=== PATIENT | male | born 1960 | race Caucasian/White ===

== ENCOUNTER 2018-04-30 09:37 | Emergency (ER) | payer MEDICARE, OTHER ==
--- NOTE | 2018-04-30 10:36 | EDM.PDOC ---
ED HPI GENERAL MEDICAL PROBLEM - General Chief Complaint: Upper Extremity Injury/Pain Stated Complaint: LT ARM IS SWOLLEN AND BRUISED Time Seen by Provider: 04/30/18 10:35 Source of Information: Reports: Patient History Limitations: Reports: No Limitations - History of Present Illness INITIAL COMMENTS - FREE TEXT/NARRATIVE: Priyank complains of pain/ swelling of the left upper extremity. Was moving "building a pool house LAST . Swelling started shortly afterwards with no apparent trauma.Red,numb,swollen arm and forearm. 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 Musculoskeletal History: Reports: Fracture Other Musculoskeletal History: hx bilat wrist fx Neurological History: Reports: Seizure, Other (See Below) 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 Psychiatric History: Reports: Addiction, Mood Swings Endocrine/Metabolic History: Reports: None Hematologic History: Reports: None Immunologic History: Reports: None Oncologic (Cancer) History: Reports: None Dermatologic History: Reports: None - Infectious Disease History Infectious Disease History: Reports: Chicken Pox - Past Surgical History Respiratory Surgical History: Reports: None GI Surgical History: Reports: None Male Surgical History: Reports: None Neurological Surgical History: Reports: Other (See Below) Other Neurological Surgeries/Procedures: scar tissue removed from R side of brain Musculoskeletal Surgical History: Reports: Hip Replacement, ORIF, Other (See Below) Other Musculoskeletal Surgeries/Procedures:: bilat wrist surgery, hip replacement Social & Family History - Family History Family Medical History: Noncontributory - Tobacco Use Smoking Status *Q: Current Every Day Smoker Years of Tobacco use: 35 Packs/Tins Daily: 0.4 - Caffeine Use Caffeine Use: Reports: Coffee, Soda - Recreational Drug Use Recreational Drug Use: Yes Recreational Drug Type: Reports: Cocaine, LSD (Acid), Marijuana/Hashish, Methamphetamine, PCP ([place]) Other Recreational Drug Type: has not used since 1988 Review of Systems - Review of Systems Review Of Systems: ROS reveals no pertinent complaints other than HPI. ED EXAM, GENERAL - Physical Exam Exam: See Below Free Text/Narrative:: The left upper extremity has edema of the biceps and some ecchymosis.. Forearm also noted as read well and edematous. He has normal peripheral pulses abdomen radius. Exam Limited By: No Limitations General Appearance: Alert Course - Vital Signs Text/Narrative:: Ultrasound negative for DVT. Last Recorded V/S: Last Vital Signs Temp 97.8 F 04/30/18 09:42 Pulse 75 04/30/18 09:42 Resp 18 04/30/18 09:42 BP 160/74 H 04/30/18 09:42 Pulse Ox 98 04/30/18 09:42 - Orders/Labs/Meds Orders: Active Orders 24 hr Category Date Time Status VL Duplex Upr Ext Veins Ltd Lt [US] Stat Exams 04/30/18 11:17 Ordered Labs: Laboratory Tests 04/30/18 04/30/18 04/30/18 Range/Units 10:40 10:40 10:40 WBC 9.2 (4.5-12.0) X10-3/uL RBC 4.44 (4.30-5.75) x10(6)uL Hgb 13.9 (11.5-15.5) g/dL Hct 41.0 (30.0-51.3) % MCV 92.3 (80-96) fL MCH 31.2 (27.7-33.6) pg MCHC 33.8 (32.2-35.4) g/dL RDW 14.0 (11.5-15.5) % Plt Count 603 H (125-369) X10(3)uL MPV 9.0 (7.4-10.4) fL Neut % (Auto) 73.5 (46-82) % Lymph % (Auto) 15.0 (13-37) % Maury % (Auto) 5.1 (4-12) % Eos % (Auto) 3 (1.0-5.0) % Baso % (Auto) 3 H (0-2) % Neut # (Auto) 6.7 (1.6-8.3) # Lymph # (Auto) 1.4 (0.6-5.0) # Maury # (Auto) 0.5 (0.0-1.3) # Eos # (Auto) 0.3 (0.0-0.8) # Baso # (Auto) 0.3 H (0.0-0.2) # ESR 9 (0-15) mm/hr Sodium 141 (135-145) mmol/L Potassium 3.8 (3.5-5.3) mmol/L Chloride 106 (100-110) mmol/L Carbon Dioxide 28 (21-32) mmol/L BUN 11 (7-18) mg/dL Creatinine 0.8 (0.70-1.30) mg/dL Est Cr Clr Drug Dosing TNP Estimated GFR (MDRD) > 60 (>60) BUN/Creatinine Ratio 13.8 (9-20) Glucose 101 (80-116) mg/dL Calcium 8.5 L (8.6-10.2) mg/dL Creatine Kinase 91 (60-160) IU/L C-Reactive Protein 3.8 H* (0.5-0.9) mg/dL Departure - Departure Time of Disposition: 11:50 Disposition: Home, Self-Care 01 Clinical Impression: Cellulitis - Discharge Information Referrals: Rey Jacobson MD [Primary Care Provider] - Forms: ED Department Discharge - Problem List & Annotations (1) Cellulitis SNOMED Code(s): 050453589 Code(s): L03.90 - CELLULITIS, UNSPECIFIED Status: Acute Current Visit: Yes Qualifiers: Site of cellulitis: extremity Site of cellulitis of extremity: upper extremity Laterality: left Qualified Code(s): L03.114 - Cellulitis of left upper limb - Problem List Review Problem List Initiated/Reviewed/Updated: Yes - My Orders Last 24 Hours: My Active Orders 04/30/18 11:17 VL Duplex Upr Ext Veins Ltd Lt [US] Stat - Assessment/Plan Last 24 Hours: My Active Orders 04/30/18 11:17 VL Duplex Upr Ext Veins Ltd Lt [US] Stat Plan: I will discharge him home on cephalexin, abdominal pain. Advise elevation,use ibuprofen when necessary as well. Follow up in 1 week.
[2018-04-30] MEDS ORDERED: Cephalexin 500 MG Cap PO ONE (11:51)
[2018-04-30 13:01] VITALS: BP 158/82
--- NOTE | 2018-05-02 11:15 | US ---
INDICATION: Cellulitis. DUPLEX ULTRASOUND, LEFT UPPER EXTREMITY VEINS: Utilizing 2-D real time, duplex Doppler spectral analysis and color flow imaging, examination of the left upper extremity veins was obtained, 04/30/2018, and revealed compressible venous structures without evidence of deep venous thrombosis. Interstitial edema is noted. MTDD
== END 2018-04-30 11:56 | disposition home or self-care (01) ==
LOC: FB.ED 09:37
DX: L03.114 Cellulitis of left upper limb (principal); F17.210 Nicotine dependence, cigarettes, uncomplicated; Z88.5 Allergy status to narcotic agent
CPT/HCPCS: 36415; 80048; 82550; 85025; 85651; 86140; 93971-LT; 99284; A9270-GY

== ENCOUNTER 2018-10-20 09:47 | Emergency (ER) | payer MEDICARE, OTHER, BC ==
[2018-10-20] MEDS ORDERED: Ketamine 500 mg/10 ML MDV IV ONE (10:02)
[2018-10-20] MEDS ORDERED: Sodium Chloride 0.9% 1,000 ML IV ONE (10:03)
[2018-10-20] MEDS ORDERED: Indomethacin 25 MG Cap PO ONE (10:54)
[2018-10-20 13:32] VITALS: BP 176/82
--- NOTE | 2018-10-23 16:34 | EDM.PDOC ---
ED HPI GENERAL MEDICAL PROBLEM - General Chief Complaint: Lower Extremity Injury/Pain Stated Complaint: RT ANKLE PAIN AND SWOLLEN Time Seen by Provider: 10/20/18 10:30 Source of Information: Reports: Patient History Limitations: Reports: No Limitations - History of Present Illness INITIAL COMMENTS - FREE TEXT/NARRATIVE: This pleasant smoking 56-year-old asthenic. Presents with a history onset last night of right ankle pain. It occurred spontaneously. Is not lifting anything nor did he slip/fall on the ice. H di not have an inversion injury. No unusual heavy lifting or heavy exertion yesterday. No previous history of injury or compression fracture or jumping from heights. left ankle Pain Score (Numeric/FACES): 8 - Related Data Allergies Allergy/AdvReac Type Severity Reaction Status Date / Time codeine Allergy Severe Nausea and Verified 04/30/18 09:47 Vomiting Home Meds: Home Meds Felbamate [Felbatol] 1,800 mg PO BID 05/30/16 [History] Folic Acid 1 mg PO DAILY 05/30/16 [History] lamoTRIgine [Lamictal] 500 mg PO DAILY 05/30/16 [History] Indomethacin [Indocin] 25 mg PO BID PRN #30 cap 10/20/18 [Rx] Past Medical History HEENT History: Reports: None Cardiovascular History: Reports: None Respiratory History: Reports: None Gastrointestinal History: Reports: None Genitourinary History: Reports: None 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 Musculoskeletal History: Reports: Fracture Other Musculoskeletal History: hx bilat wrist fx Neurological History: Reports: Seizure, Other (See Below) 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 Psychiatric History: Reports: Addiction, Mood Swings Endocrine/Metabolic History: Reports: None Hematologic History: Reports: None Immunologic History: Reports: None Oncologic (Cancer) History: Reports: None Dermatologic History: Reports: None - Infectious Disease History Infectious Disease History: Reports: Chicken Pox - Past Surgical History Respiratory Surgical History: Reports: None GI Surgical History: Reports: None Male Surgical History: Reports: None Neurological Surgical History: Reports: Other (See Below) Other Neurological Surgeries/Procedures: scar tissue removed from R side of brain Musculoskeletal Surgical History: Reports: Hip Replacement, ORIF, Other (See Below) Other Musculoskeletal Surgeries/Procedures:: bilat wrist surgery, hip replacement Social & Family History - Family History Family Medical History: Noncontributory - Tobacco Use Smoking Status *Q: Former Smoker Years of Tobacco use: 17 Packs/Tins Daily: 0.5 Used Tobacco, but Quit: Yes Month/Year Tobacco Last Used: cannot remember Second Hand Smoke Exposure: No - Caffeine Use Caffeine Use: Reports: Coffee, Soda - Recreational Drug Use Recreational Drug Use: Yes Review of Systems - Review of Systems Review Of Systems: ROS reveals no pertinent complaints other than HPI. ED EXAM, GENERAL - Physical Exam Exam: See Below Free Text/Narrative:: Pleasant asthenic man who is a smoker. He has smoking odor on his breath. And is attended by his . Exam Limited By: No Limitations General Appearance: Alert Eye Exam: Bilateral Eye: Normal Inspection Ears: Normal External Exam, Hearing Loss Ear Exam: Bilateral Ear: Auricle Normal, Canal Normal, TM normal Nose: Normal Inspection, Normal Mucosa, No Blood Throat/Mouth: Normal Inspection Head: Atraumatic, Normocephalic Neck: Normal Inspection, Supple, Non-Tender, Full Range of Motion Respiratory/Chest: No Respiratory Distress, Lungs Clear, Normal Breath Sounds, No Accessory Muscle Use, Chest Non-Tender Cardiovascular: Normal Peripheral Pulses, Regular Rate, Rhythm, No Edema, No Gallop, No JVD, No Murmur, No Rub Peripheral Pulses: 1+: Radial (L), Radial (R), Dorsalis Pedis (L), Dorsalis Pedis (R) GI/Abdominal: Normal Bowel Sounds, Soft, Non-Tender, No Organomegaly, No Distention, No Abnormal Bruit, No Mass (Male) Exam: Deferred Rectal (Males) Exam: Deferred Back Exam: Normal Inspection Extremities: Other (Right ankle mild discomfort with inversion and eversion no pain with drawer sign. No swelling. No focal tenderness. No crepitance.) Neurological: Alert, Oriented, CN II-XII Intact, Normal Cognition, Normal Gait, Normal Reflexes, No Motor/Sensory Deficits Psychiatric: Normal Affect, Tearful Skin Exam: Warm, Dry, Intact, Normal Color Course - Vital Signs Last Recorded V/S: Last Vital Signs Temp 36.6 C 10/20/18 10:45 Pulse 55 L 10/20/18 11:15 Resp 17 10/20/18 11:15 BP 176/82 H 10/20/18 11:15 Pulse Ox 100 10/20/18 11:15 - Orders/Labs/Meds Labs: Laboratory Tests 10/20/18 Range/Units 11:10 Uric Acid 4.3 (2.6-6.0) mg/dL Meds: Medications Discontinued Medications Generic Name Dose Route Start Last Admin Trade Name Freq PRN Reason Stop Dose Admin Sodium Chloride 1,000 mls @ 999 mls/hr 10/20/18 10:03 10/20/18 16:24 Normal Saline IV 10/20/18 11:03 Not Given .BOLUS ONE Indomethacin 25 mg 10/20/18 10:54 10/20/18 16:23 Indocin PO 10/20/18 10:55 Not Given ONETIME ONE Ketamine HCl 40 mg 10/20/18 10:02 10/20/18 16:24 Ketalar IV 10/20/18 10:03 Not Given ONETIME ONE - Re-Assessments/Exams Free Text/Narrative Re-Assessment/Exam: 10/23/18 16:38 x-rays were performed of his right ankle no ankle x-ray abnormality. Departure - Departure Time of Disposition: 10:50 (Ankle pain. Etiology indeterminate. Most likely gout. I noted i would call to him the results of the uric acid. The meantime trial of Indocin 25 mg 1 tablet 3 times a day.; After the lab tests came back uric acid was normal. I was mistaken that this might be gout or pseudogout. This raises a question if is having ischemia and/or vascular abnormalitie mediated symptoms. Clinically, he did not appear to be any compromise of his vascular structures in the lower extremity.. Patient was Ok's to leave the ER before I could make this result known to him. Consequently he's been advised to ankle-brachial index testing. There is no clear evidence for ischemic vessel disease. He is a smoker. So it is possible that maybe her problem.) Disposition: Home, Self-Care 01 Clinical Impression: Acute ankle pain Qualifiers: Laterality: right Qualified Code(s): M25.571 - Pain in right ankle and joints of right foot - Discharge Information *PRESCRIPTION DRUG MONITORING PROGRAM REVIEWED*: Not Applicable *COPY OF PRESCRIPTION DRUG MONITORING REPORT IN PATIENT NANCY: Not Applicable Prescriptions: Indomethacin [Indocin] 25 mg PO BID PRN #30 cap PRN Reason: Pain Referrals: Rey Jacobson MD [Primary Care Provider] - Forms: ED Department Discharge, ED Summary Discharge Additional Instructions: You have gout until proven otherwise, otherwise possible circulation abn. Lab tests will not be back for a while. Consequently I discharged you early so that you will not have to wait another hour (because of the emergent lab work of another patient is delaying the biology laboratory assistant"s chance to get after blood test) Have been prescribed Indocin take 25 mg 3 times a day. I will call the results of the blood test once is completed within an hour or 2 Follow-up with her doctor in a week
== END 2018-10-20 11:17 | disposition home or self-care (01) ==
LOC: FB.ED 09:47
DX: M25.571 Pain in right ankle and joints of right foot (principal); Z88.5 Allergy status to narcotic agent; Z79.899 Other long term (current) drug therapy; Z87.891 Personal history of nicotine dependence
CPT/HCPCS: 36415; 73610-RT; 84550; 99284

== ENCOUNTER 2018-12-03 15:54 | Emergency (ER) | payer MEDICARE, OTHER ==
[2018-12-03] MEDS ORDERED: Sodium Chloride 0.9% 10 ML Syringe FLUSH PRN (16:29)
[2018-12-03] MEDS ORDERED: Dextrose 5%-Lactated Ringers 1,000 ML IV SCH (16:30)
--- NOTE | 2018-12-03 17:19 | EDM.PDOC ---
ED HPI GENERAL MEDICAL PROBLEM - General Chief Complaint: Gastrointestinal Problem Stated Complaint: HEADACHE Time Seen by Provider: 12/03/18 16:15 Source of Information: Reports: Patient, Family History Limitations: Reports: No Limitations - History of Present Illness INITIAL COMMENTS - FREE TEXT/NARRATIVE: Priyank comes into [facility] ED with sxs of GI upset, nausea and vomiting, and moderately severe headache. Illness began 2 days ago with digestive upset and diarrhea, no reported BRB or mucous. Sxs seem to improve, then began feeling ill again late yesterday evening, followed by multiple clear emesis about 2:30 am today. Headaches followed, frontal-occipital in nature, with some dizziness worse with lying back. He vomited breakfast this am, and was seen in Clinic about 11 am today, and administered Toradol and Zofran for sxs relief. Headache sxs persist and seem worse. No position seems comfortable, although sitting up seems to keep sxs stable. Treatments COMMAND AND CONTROL OFFICER: Reports: NSAIDS, Other (see below) Other Treatments COMMAND AND CONTROL OFFICER: Zofran - Related Data Allergies Allergy/AdvReac Type Severity Reaction Status Date / Time codeine Allergy Severe Nausea and Verified 04/30/18 09:47 Vomiting Home Meds: Home Meds Felbamate [Felbatol] 1,800 mg PO BID 05/30/16 [History] lamoTRIgine [Lamictal] 500 mg PO DAILY 05/30/16 [History] Aspirin 325 mg PO DAILY 12/03/18 [History] hydrOXYzine pamoate [Vistaril] 50 mg PO Q6H #20 cap 12/03/18 [Rx] traMADol [Ultram] 50 mg PO Q4H PRN #20 tab 12/03/18 [Rx] Past Medical History HEENT History: Reports: None Cardiovascular History: Reports: None Respiratory History: Reports: None Gastrointestinal History: Reports: None Genitourinary History: Reports: None SUPERINTENDENT RECREATION History: Reports: None Musculoskeletal History: Reports: Fracture Other Musculoskeletal History: hx bilat wrist fx Neurological History: Reports: Seizure, Other (See Below) 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 Psychiatric History: Reports: Addiction, Mood Swings Endocrine/Metabolic History: Reports: None Hematologic History: Reports: None Immunologic History: Reports: None Oncologic (Cancer) History: Reports: None Dermatologic History: Reports: None - Infectious Disease History Infectious Disease History: Reports: Chicken Pox - Past Surgical History Respiratory Surgical History: Reports: None GI Surgical History: Reports: None Male Surgical History: Reports: None Neurological Surgical History: Reports: Other (See Below) Other Neurological Surgeries/Procedures: scar tissue removed from R side of brain Musculoskeletal Surgical History: Reports: Hip Replacement, ORIF, Other (See Below) Other Musculoskeletal Surgeries/Procedures:: bilat wrist surgery, hip replacement Social & Family History - Family History Family Medical History: Noncontributory - Tobacco Use Smoking Status *Q: Current Every Day Smoker Years of Tobacco use: 30 Packs/Tins Daily: 0.5 - Caffeine Use Caffeine Use: Reports: Coffee - Recreational Drug Use Recreational Drug Use: No ED ROS GENERAL - Review of Systems Review Of Systems: See Below Constitutional: Reports: Malaise, Weakness, Decreased Appetite HEENT: Reports: No Symptoms Respiratory: Reports: No Symptoms Cardiovascular: Reports: No Symptoms Endocrine: Reports: No Symptoms GI/Abdominal: Reports: Diarrhea, Decreased Appetite, Nausea, Vomiting : Reports: No Symptoms Musculoskeletal: Reports: No Symptoms Skin: Reports: No Symptoms Neurological: Reports: Dizziness, Headache Psychiatric: Reports: No Symptoms Hematologic/Lymphatic: Reports: No Symptoms Immunologic: Reports: No Symptoms ED EXAM, GI/ABD - Physical Exam Exam: See Below Exam Limited By: No Limitations General Appearance: Alert, WD/WN, Anxious, Mild Distress Eyes: Bilateral: Normal Appearance, EOMI Ears: Normal External Exam Nose: Normal Inspection Throat/Mouth: Normal Lips, Normal Oropharynx, Normal Voice, No Airway Compromise Head: Atraumatic, Normocephalic Neck: Normal Inspection, Supple, Non-Tender Respiratory/Chest: No Respiratory Distress, Normal Breath Sounds, No Accessory Muscle Use, Chest Non-Tender, Decreased Breath Sounds Cardiovascular: Regular Rate, Rhythm, No Edema, No JVD, No Murmur GI/Abdominal Exam: Normal Bowel Sounds, Soft, Non-Tender, No Organomegaly, No Distention, No Mass (Male) Exam: Deferred Rectal (Males) Exam: Deferred Back Exam: Normal Inspection Extremities: Normal Inspection, Normal Range of Motion, Non-Tender, No Pedal Edema Neurological: Alert, Oriented, CN II-XII Intact, Normal Cognition, Normal Gait, No Motor/Sensory Deficits Psychiatric: Anxious Skin Exam: Warm, Dry, Intact, Normal Color Lymphatic: No Adenopathy Course - Vital Signs Text/Narrative:: Following assessment at the [facility] ED, I started an IV in the RUE and administered 1L D5LR over the next 2 hrs. He was also administered Vistaril 50 mg IM for nausea, and Tramadol 50 mg tab for headache sxs. A noncontrast Head CT was satisfactory; screening labs noted: Hgb 15.8 gm, WBC 15,900, plts 775,000 ; CMP baseline, UA neg, CRP 1.5. He was clinically improved at time of discharge. Last Recorded V/S: Last Vital Signs Temp 36.5 C 12/03/18 15:55 Pulse 72 12/03/18 15:55 Resp 18 12/03/18 15:55 BP 123/78 12/03/18 15:55 Pulse Ox 96 12/03/18 15:55 - Orders/Labs/Meds Orders: Active Orders 24 hr Category Date Time Status Head wo Cont [CT] Stat Exams 12/03/18 16:30 Taken Dextrose 5%-Lactated Ringers 1,000 ml Med 12/03/18 16:30 Active IV ASDIRECTED Sodium Chloride 0.9% [Saline Flush] Med 12/03/18 16:29 Active 10 ml FLUSH ASDIRECTED PRN Peripheral IV Insertion Adult [OM.PC] Routine Oth 12/03/18 16:29 Ordered Medication Orders Dextrose/Lactated Ringer's (Dextrose 5%-Lactated Ringers) 1,000 mls @ 500 mls/ hr IV ASDIRECTED ALEXIA Last Admin: 12/03/18 16:43 Dose: 500 mls/hr Sodium Chloride (Saline Flush) 10 ml FLUSH ASDIRECTED PRN PRN Reason: Keep Vein Open Last Admin: 12/03/18 16:44 Dose: 10 ml Labs: Laboratory Tests 12/03/18 12/03/18 12/03/18 Range/Units 16:45 16:45 16:45 WBC 15.9 H (4.5-12.0) X10-3/uL RBC 5.32 (4.30-5.75) x10(6)uL Hgb 15.8 (13.5-17.8) g/dL Hct 47.4 (30.0-51.3) % MCV 89.1 (80-96) fL MCH 29.8 (27.7-33.6) pg MCHC 33.4 (32.2-35.4) g/dL RDW 13.8 (11.5-15.5) % Plt Count 775 H (125-369) X10(3)uL MPV 9.2 (7.4-10.4) fL Add Manual Diff Yes Neutrophils % (Manual) 88 H (46-82) % Lymphocytes % (Manual) 6 L (13-37) % Monocytes % (Manual) 4 (4-12) % Eosinophils % (Manual) 2 (0-5) % Sodium 142 (135-145) mmol/L Potassium 3.7 (3.5-5.3) mmol/L Chloride 104 (100-110) mmol/L Carbon Dioxide 25 (21-32) mmol/L BUN 11 (7-18) mg/dL Creatinine 1.0 (0.70-1.30) mg/dL Est Cr Clr Drug Dosing 87.30 mL/min Estimated GFR (MDRD) > 60 (>60) BUN/Creatinine Ratio 11.0 (9-20) Glucose 111 (80-116) mg/dL Calcium 8.8 (8.6-10.2) mg/dL Total Bilirubin 0.4 (0.1-1.3) mg/dL AST 20 (5-25) IU/L ALT 24 (12-36) U/L Alkaline Phosphatase 101 (56-112) IU/L C-Reactive Protein 1.5 H (0.5-0.9) mg/dL Total Protein 6.5 (6.0-8.0) g/dL Albumin 3.8 (3.5-5.2) g/dL Globulin 2.7 g/dL Albumin/Globulin Ratio 1.4 Urine Color (YELLOW) Urine Appearance (CLEAR) Urine pH (5.0-6.5) Ur Specific [place] (1.010-1.025) Urine Protein (NEGATIVE) mg/dL Urine Glucose (UA) (NORMAL) mg/dL Urine Ketones (NEGATIVE) mg/dL Urine Occult Blood (NEGATIVE) Urine Nitrite (NEGATIVE) Urine Bilirubin (NEGATIVE) Urine Urobilinogen (NEGATIVE) mg/dL Ur Leukocyte Esterase (NEGATIVE) Urine RBC (0-5) Urine WBC (0-5) Ur Squamous Epith Cells (NS,R,O) Urine Bacteria (NS) Urine Mucus (NS) 12/03/18 Range/Units 17:35 WBC (4.5-12.0) X10-3/uL RBC (4.30-5.75) x10(6)uL Hgb (13.5-17.8) g/dL Hct (30.0-51.3) % MCV (80-96) fL MCH (27.7-33.6) pg MCHC (32.2-35.4) g/dL RDW (11.5-15.5) % Plt Count (125-369) X10(3)uL MPV (7.4-10.4) fL Add Manual Diff Neutrophils % (Manual) (46-82) % Lymphocytes % (Manual) (13-37) % Monocytes % (Manual) (4-12) % Eosinophils % (Manual) (0-5) % Sodium (135-145) mmol/L Potassium (3.5-5.3) mmol/L Chloride (100-110) mmol/L Carbon Dioxide (21-32) mmol/L BUN (7-18) mg/dL Creatinine (0.70-1.30) mg/dL Est Cr Clr Drug Dosing mL/min Estimated GFR (MDRD) (>60) BUN/Creatinine Ratio (9-20) Glucose (80-116) mg/dL Calcium (8.6-10.2) mg/dL Total Bilirubin (0.1-1.3) mg/dL AST (5-25) IU/L ALT (12-36) U/L Alkaline Phosphatase (56-112) IU/L C-Reactive Protein (0.5-0.9) mg/dL Total Protein (6.0-8.0) g/dL Albumin (3.5-5.2) g/dL Globulin g/dL Albumin/Globulin Ratio Urine Color Yellow (YELLOW) Urine Appearance Clear (CLEAR) Urine pH 5.0 (5.0-6.5) Ur Specific [place] 1.025 (1.010-1.025) Urine Protein 30 H (NEGATIVE) mg/dL Urine Glucose (UA) Normal (NORMAL) mg/dL Urine Ketones Negative (NEGATIVE) mg/dL Urine Occult Blood Negative (NEGATIVE) Urine Nitrite Negative (NEGATIVE) Urine Bilirubin Small H (NEGATIVE) Urine Urobilinogen 1 H (NEGATIVE) mg/dL Ur Leukocyte Esterase Small H (NEGATIVE) Urine RBC 0-5 (0-5) Urine WBC 0-5 (0-5) Ur Squamous Epith Cells Occasional (NS,R,O) Urine Bacteria Few H (NS) Urine Mucus Moderate H (NS) Meds: Medications Generic Name Dose Route Start Last Admin Trade Name Freq PRN Reason Stop Dose Admin Dextrose/Lactated Ringer's 1,000 mls @ 500 mls/hr 12/03/18 16:30 12/03/18 16: 43 Dextrose 5%-Lactated Ringers IV 500 mls/hr ASDIRECTED ALEXIA Administration Sodium Chloride 10 ml 12/03/18 16:29 12/03/18 16:44 Saline Flush FLUSH 10 ml ASDIRECTED PRN Administration Keep Vein Open Discontinued Medications Generic Name Dose Route Start Last Admin Trade Name Freq PRN Reason Stop Dose Admin Hydroxyzine HCl 50 mg 12/03/18 17:55 12/03/18 18:11 Vistaril IM 12/03/18 17:56 50 mg ONETIME ONE Administration Tramadol HCl 50 mg 12/03/18 18:33 Ultram PO 12/03/18 18:34 ONETIME ONE Departure - Departure Time of Disposition: 18:38 Disposition: Home, Self-Care 01 Condition: Fair Clinical Impression: Gastroenteritis, Headache - Discharge Information *PRESCRIPTION DRUG MONITORING PROGRAM REVIEWED*: Not Applicable *COPY OF PRESCRIPTION DRUG MONITORING REPORT IN PATIENT NANCY: Not Applicable Prescriptions: hydrOXYzine pamoate [Vistaril] 50 mg PO Q6H #20 cap traMADol [Ultram] 50 mg PO Q4H PRN #20 tab PRN Reason: Breakthrough Pain Referrals: Rey Jacobson MD [Primary Care Provider] - Forms: ED Department Discharge - Problem List & Annotations (1) Gastroenteritis SNOMED Code(s): 93719591 Code(s): K52.9 - NONINFECTIVE GASTROENTERITIS AND COLITIS, UNSPECIFIED Status: Acute Current Visit: Yes Annotation/Comment:: I dispensed Vistaril 50 mg tabs as directed for nausea, rest, clear liquids. (2) Headache SNOMED Code(s): 95457130 Code(s): R51 - HEADACHE Status: Acute Current Visit: Yes Annotation/ Comment:: I dispensed Tramadol 50 mg tabs as directed for headache sxs. Qualifiers: Headache type: tension-type Headache chronicity pattern: acute headache Intractability: not intractable Qualified Code(s): G44.209 - Tension-type headache, unspecified, not intractable - Problem List Review Problem List Initiated/Reviewed/Updated: Yes - My Orders Last 24 Hours: My Active Orders 12/03/18 16:29 Sodium Chloride 0.9% [Saline Flush] 10 ml FLUSH ASDIRECTED PRN Peripheral IV Insertion Adult [OM.PC] Routine 12/03/18 16:30 Head wo Cont [CT] Stat Dextrose 5%-Lactated Ringers 1,000 ml IV ASDIRECTED - Assessment/Plan Last 24 Hours: My Active Orders 12/03/18 16:29 Sodium Chloride 0.9% [Saline Flush] 10 ml FLUSH ASDIRECTED PRN Peripheral IV Insertion Adult [OM.PC] Routine 12/03/18 16:30 Head wo Cont [CT] Stat Dextrose 5%-Lactated Ringers 1,000 ml IV ASDIRECTED Plan: Follow up with PCP if needed.
[2018-12-03] MEDS ORDERED: hydrOXYzine HCl 50 MG/ML SDV IM ONE (17:55)
[2018-12-03] MEDS ORDERED: traMADol 50 MG Tab PO ONE (18:33)
[2018-12-03 18:58] VITALS: BP 126/62
== END 2018-12-03 18:55 | disposition home or self-care (01) ==
LOC: FB.ED 15:54
DX: K52.9 Noninfective gastroenteritis and colitis, unspecified (principal); F17.210 Nicotine dependence, cigarettes, uncomplicated; Z79.899 Other long term (current) drug therapy; Z88.5 Allergy status to narcotic agent
CPT/HCPCS: 36415; 70450; 80053; 81001; 85025; 86140; 96365; 96366; 96372; 99284-25; A9270-GY; J3410; J7042

== ENCOUNTER 2019-04-05 15:05 | Observation (INO) | payer BC, MEDICARE, OTHER ==
--- NOTE | 2019-04-05 15:22 | EDM.PDOC ---
ED HPI GENERAL MEDICAL PROBLEM - General Stated Complaint: Chest pain Time Seen by Provider: 04/05/19 15:20 Source of Information: Reports: Patient History Limitations: Reports: No Limitations - History of Present Illness INITIAL COMMENTS - FREE TEXT/NARRATIVE: 58-year-old male who reports that he has had problems with elevated blood pressure and a lot of stress for the past 3 weeks. For the past 4-5 days he has had intermittent centrally and left-sided chest pain that seems to last for a short period of time less than a few minutes and then go away. Nothing really seems to bring the pain on. He was seen yesterday in the emergency department secondary to elevated blood pressure and chest pain. His laboratory testing was unremarkable and the patient was discharged home the patient was seen yesterday by his primary provider Deborah Henson and again today by his primary provider. He was placed on losartan yesterday and Catapres today for his blood pressure. Today, he felt that his chest pain was coming more frequently and lasting for longer period of time. He reports that the pain is a dull pain and it is worse with taking a deep breath and made somewhat worse by palpation but it also has a component that really is not changed by any of these maneuvers. Nothing really seems to bring the pain on and nothing makes the pain go away. He has had no shortness of breath. There has been no diaphoresis. He has had no neck, jaw or arm pain. He currently has no pain. He rates his pain as a 0/10. He also has had intermittent headaches associated with this. There are no other associated signs or symptoms. There are no other modifying factors. Onset: Other (Ongoing for the past 4-5 days) Duration: Getting Worse, Intermittent Location: Reports: Chest Quality: Reports: Dull (But with no pain now) Improves with: Reports: None Worsens with: Reports: Other (As above) Context: Reports: Other (As above) Associated Symptoms: Reports: No Other Symptoms (As above) Treatments MAIL ORDER BILLER: Reports: Other (see below) (Nothing) Chest Pain Score (Numeric/FACES): 2 - Related Data Allergies Allergy/AdvReac Type Severity Reaction Status Date / Time codeine Allergy Severe Nausea and Verified 04/04/19 16:18 Vomiting Home Meds: Home Meds Felbamate [Felbatol] 1,800 mg PO BID 05/30/16 [History] lamoTRIgine [Lamictal] 250 mg PO BID 05/30/16 [History] Losartan/Hydrochlorothiazide [Losartan-HCTZ 50-12.5 MG] 1 tab DAILY 04/04/19 [ History] Past Medical History Cardiovascular History: Reports: Hypertension Musculoskeletal History: Reports: Fracture Other Musculoskeletal History: hx bilat wrist fx Neurological History: Reports: Seizure, Other (See Below) 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 Psychiatric History: Reports: 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.), Mood Swings Other Psychiatric History: Hx ETOH abuse, drug abuse - Infectious Disease History Infectious Disease History: Reports: Chicken Pox - Past Surgical History Neurological Surgical History: Reports: Intracranial, Other (See Below) Other Neurological Surgeries/Procedures: scar tissue removed from R side of brain Musculoskeletal Surgical History: Reports: Hip Replacement, ORIF, Other (See Below) Other Musculoskeletal Surgeries/Procedures:: bilat wrist surgery, hip replacement Social & Family History - Tobacco Use Smoking Status *Q: Current Every Day Smoker - Caffeine Use Caffeine Use: Reports: Coffee - Alcohol Use Alcohol Use History: Yes Alcohol Use in Last Twelve Months: No Alcohol Use Comment: Sober from alcohol since 1988. - Recreational Drug Use Recreational Drug Use: Yes Drug Use in Last 12 Months: No Recreational Drug Use Comment: Sober from drug use since 1988. - Living Situation & Occupation Occupation: Disabled ED ROS GENERAL - Review of Systems Review Of Systems: See Below Constitutional: Reports: No Symptoms HEENT: Reports: No Symptoms Respiratory: Reports: No Symptoms Cardiovascular: Reports: Chest Pain. Denies: Palpitations Endocrine: Reports: No Symptoms GI/Abdominal: Reports: No Symptoms : Reports: No Symptoms Musculoskeletal: Reports: No Symptoms Skin: Reports: No Symptoms Neurological: Reports: No Symptoms Hematologic/Lymphatic: Reports: No Symptoms Immunologic: Reports: No Symptoms ED EXAM, GENERAL - Physical Exam Exam: See Below Exam Limited By: No Limitations General Appearance: Alert, WD/WN, No Apparent Distress Eye Exam: Bilateral Eye: EOMI, Normal Inspection, PERRL Ears: Normal External Exam, Hearing Grossly Normal Ear Exam: Bilateral Ear: Auricle Normal Nose: Normal Inspection, Normal Mucosa Throat/Mouth: Normal Voice, No Airway Compromise, Other (Moist mucous membranes) Head: Normocephalic Neck: Normal Inspection, Supple, Non-Tender, Full Range of Motion Respiratory/Chest: No Respiratory Distress, Lungs Clear, Normal Breath Sounds, No Accessory Muscle Use, Chest Non-Tender, Other (Reproducible tenderness with palpation over his left parasternal chest area) Cardiovascular: Normal Peripheral Pulses, Regular Rate, Rhythm, No JVD Peripheral Pulses: 2+: Radial (L), Radial (R), Dorsalis Pedis (L), Dorsalis Pedis (R) GI/Abdominal: Normal Bowel Sounds, Soft, Non-Tender, No Distention Back Exam: Normal Inspection, Full Range of Motion Extremities: Normal Inspection, Normal Range of Motion, Non-Tender, No Pedal Edema, Normal Capillary Refill Neurological: Alert, Oriented, CN II-XII Intact, Normal Cognition, No Motor/ Sensory Deficits Psychiatric: Normal Affect Skin Exam: Warm, Dry, Intact, Normal Color, No Rash Lymphatic: No Adenopathy EKG INTERPRETATION EKG Date: 04/05/19 Time: 15:04 Rhythm: NSR Rate (Beats/Min): 69 [place]: LAD-Left [place] Deviation P-Wave: Present QRS: Other (Nonspecific IVCD) ST-T: Other (Some poor R-wave progression) QT: Prolonged (Prolonged QTC) Comparison: No Change (No change from EKG performed on 04/04/2019.) Course - Vital Signs Last Recorded V/S: Last Vital Signs Temp 36.8 C 04/05/19 15:05 Pulse 65 04/05/19 15:05 Resp 18 04/05/19 15:05 BP 161/88 H 04/05/19 15:05 Pulse Ox 99 04/05/19 15:05 - Orders/Labs/Meds Orders: Active Orders 24 hr Category Date Time Status EKG Documentation Completion [RC] ASDIRECTED Care 04/05/19 15:43 Active Ang Chest [CT] Stat Exams 04/05/19 16:42 Taken Sodium Chloride 0.9% [Saline Flush] Med 04/05/19 15:42 Active 10 ml FLUSH ASDIRECTED PRN Peripheral IV Insertion Adult [OM.PC] Routine Oth 04/05/19 15:42 Ordered EKG 12 Lead [EK] Routine Ther 04/05/19 15:42 Ordered Medication Orders Sodium Chloride (Saline Flush) 10 ml FLUSH ASDIRECTED PRN PRN Reason: Keep Vein Open Labs: Laboratory Tests 04/05/19 04/05/19 04/05/19 Range/Units 15:51 15:51 15:51 WBC 10.3 (4.5-12.0) X10-3/uL RBC 6.00 H (4.30-5.75) x10(6)uL Hgb 16.8 (13.5-17.8) g/dL Hct 50.3 (30.0-51.3) % MCV 83.8 (80-96) fL MCH 28.0 (27.7-33.6) pg MCHC 33.4 (32.2-35.4) g/dL RDW 14.4 (11.5-15.5) % Plt Count 583 H (125-369) X10(3)uL MPV 8.9 (7.4-10.4) fL Neut % (Auto) 73.1 (46-82) % Lymph % (Auto) 16.0 (13-37) % [place] % (Auto) 4.4 (4-12) % Eos % (Auto) 4 (1.0-5.0) % Baso % (Auto) 2 (0-2) % Neut # (Auto) 7.6 (1.6-8.3) # Lymph # (Auto) 1.6 (0.6-5.0) # [place] # (Auto) 0.5 (0.0-1.3) # Eos # (Auto) 0.4 (0.0-0.8) # Baso # (Auto) 0.2 (0.0-0.2) # D-Dimer, Quantitative 0.68 H (0.0-0.59) mg/LFEU Sodium 143 (135-145) mmol/L Potassium 3.7 (3.5-5.3) mmol/L Chloride 106 (100-110) mmol/L Carbon Dioxide 26 (21-32) mmol/L BUN 14 (7-18) mg/dL Creatinine 0.8 (0.70-1.30) mg/dL Est Cr Clr Drug Dosing TNP Estimated GFR (MDRD) > 60 (>60) BUN/Creatinine Ratio 17.5 (9-20) Glucose 92 (80-116) mg/dL Calcium 9.0 (8.6-10.2) mg/dL Total Bilirubin 0.4 (0.1-1.3) mg/dL AST 12 D (5-25) IU/L ALT 16 D (12-36) U/L Alkaline Phosphatase 139 H (56-112) IU/L Troponin I (<0.017-0.056) ng/mL Total Protein 6.8 (6.0-8.0) g/dL Albumin 4.0 (3.2-4.6) g/dL Globulin 2.8 g/dL Albumin/Globulin Ratio 1.4 04/05/19 Range/Units 15:51 WBC (4.5-12.0) X10-3/uL RBC (4.30-5.75) x10(6)uL Hgb (13.5-17.8) g/dL Hct (30.0-51.3) % MCV (80-96) fL MCH (27.7-33.6) pg MCHC (32.2-35.4) g/dL RDW (11.5-15.5) % Plt Count (125-369) X10(3)uL MPV (7.4-10.4) fL Neut % (Auto) (46-82) % Lymph % (Auto) (13-37) % [place] % (Auto) (4-12) % Eos % (Auto) (1.0-5.0) % Baso % (Auto) (0-2) % Neut # (Auto) (1.6-8.3) # Lymph # (Auto) (0.6-5.0) # [place] # (Auto) (0.0-1.3) # Eos # (Auto) (0.0-0.8) # Baso # (Auto) (0.0-0.2) # D-Dimer, Quantitative (0.0-0.59) mg/LFEU Sodium (135-145) mmol/L Potassium (3.5-5.3) mmol/L Chloride (100-110) mmol/L Carbon Dioxide (21-32) mmol/L BUN (7-18) mg/dL Creatinine (0.70-1.30) mg/dL Est Cr Clr Drug Dosing Estimated GFR (MDRD) (>60) BUN/Creatinine Ratio (9-20) Glucose (80-116) mg/dL Calcium (8.6-10.2) mg/dL Total Bilirubin (0.1-1.3) mg/dL AST (5-25) IU/L ALT (12-36) U/L Alkaline Phosphatase (56-112) IU/L Troponin I < 0.017 L (<0.017-0.056) ng/mL Total Protein (6.0-8.0) g/dL Albumin (3.2-4.6) g/dL Globulin g/dL Albumin/Globulin Ratio Meds: Medications Generic Name Dose Route Start Last Admin Trade Name Freq PRN Reason Stop Dose Admin Sodium Chloride 10 ml 04/05/19 15:42 Saline Flush FLUSH ASDIRECTED PRN Keep Vein Open Discontinued Medications Generic Name Dose Route Start Last Admin Trade Name Freq PRN Reason Stop Dose Admin Aspirin 324 mg 04/05/19 15:52 Aspirin PO 04/05/19 15:53 ONETIME ONE Iopamidol 75 ml 04/05/19 17:04 04/05/19 17:11 [id number] (76%) IV 04/05/19 17:05 75 ml ONETIME ONE Administration - Re-Assessments/Exams Free Text/Narrative Re-Assessment/Exam: 04/05/19 18:10: Patient remains chest pain-free. His initial troponin was negative. His d-dimer was positive and a CTA of his chest has been performed but results are pending at this point. Care the patient will be to Dr. Jacobson at this point. Please see his note in regard to the patient's disposition and further cares. Departure - Departure Time of Disposition: 18:10 Disposition: Still A Patient 30 Condition: Fair Clinical Impression: Chest pain Qualifiers: Chest pain type: unspecified Qualified Code(s): R07.9 - Chest pain, unspecified Hypertension Qualifiers: Hypertension type: unspecified Qualified Code(s): I10 - Essential (primary) hypertension Referrals: Rey Jacobsno MD [Primary Care Provider] - - My Orders Last 24 Hours: My Active Orders 04/05/19 15:42 Sodium Chloride 0.9% [Saline Flush] 10 ml FLUSH ASDIRECTED PRN Peripheral IV Insertion Adult [OM.PC] Routine EKG 12 Lead [EK] Routine 04/05/19 15:43 EKG Documentation Completion [RC] ASDIRECTED 04/05/19 16:42 Ang Chest [CT] Stat - Assessment/Plan Last 24 Hours: My Active Orders 04/05/19 15:42 Sodium Chloride 0.9% [Saline Flush] 10 ml FLUSH ASDIRECTED PRN Peripheral IV Insertion Adult [OM.PC] Routine EKG 12 Lead [EK] Routine 04/05/19 15:43 EKG Documentation Completion [RC] ASDIRECTED 04/05/19 16:42 Ang Chest [CT] Stat
[2019-04-05] MEDS ORDERED: Sodium Chloride 0.9% 10 ML Syringe FLUSH PRN (15:42)
[2019-04-05] MEDS ORDERED: Aspirin 81 MG Tab.Chew PO ONE (15:52)
[2019-04-05] MEDS ORDERED: Iopamidol 755 Mg/ML 75 ML Bottle IV ONE (17:04)
[2019-04-05] MEDS ORDERED: Labetalol 100 MG/20 ML MDV IVPUSH ONE ×2 (18:45→21:14)
[2019-04-05] MEDS ORDERED: Ketorolac 30 MG/ML SDV IM PRN (18:45)
[2019-04-05] MEDS ORDERED: 50% Dextrose in Water 50 ML Syringe IVPUSH ONE (19:43)
[2019-04-05] MEDS ORDERED: FELBAMATE PO SCH (21:00)
[2019-04-05] MEDS ORDERED: LAMOTRIGINE 250 MG PO SCH (21:00)
[2019-04-05] MEDS: LAMOTRIGINE 200 MG PO SCH (22:00)
[2019-04-05] MEDS: LAMOTRIGINE 25 MG PO SCH (22:00)
[2019-04-05] MEDS: FELBAMATE 600 MG PO SCH (22:00)
--- NOTE | 2019-04-06 01:58 | ER ---
DATE SEEN: 04/05/2019 ADDENDUM: CHIEF COMPLAINT: 1. Hypertension. 2. Chest pain. HISTORY OF PRESENT ILLNESS: This is a 58-year-old who has been in the ER twice now for chest pain, came in earlier and was seen by Dr. Burns. He handed over care to me waiting for the CT scan of the chest. His pain has gone, but he has had intermittent pain on the left side. He has also had elevated blood pressure and is undergoing some stressful situations at home. Please see Dr. Burns's note for further details. PAST MEDICAL HISTORY: Consistent with seizure disorder and tobacco abuse. ALLERGIES: Codeine. PHYSICAL EXAMINATION: VITAL SIGNS: Upon repeat exam, his blood pressure is still 177/100. He is afebrile and has a normal saturation on room air. ENT: Negative. HEAD: Atraumatic. CHEST: Clear. CARDIOVASCULAR: Normal. MENTAL STATUS: He is alert. DIAGNOSTIC STUDIES: His D-dimer was elevated, but CT of the chest for PE was negative, it showed some emphysematous changes. FINAL IMPRESSION: 1. Atypical chest pain. 2. Uncontrolled hypertension. 3. Seizure disorder. 4. Tobacco abuse. PLAN: He is to admit for observation. Repeat labs including troponin in the morning and EKG. Gave labetalol for blood pressure control. Continue his home seizure medications. /[id number] STACY/JABIER
[2019-04-06] MEDS ORDERED: LAMOTRIGINE 200 MG PO SCH (09:00)
[2019-04-06] MEDS ORDERED: HCTZ PO SCH (09:00)
[2019-04-06] MEDS ORDERED: FELBAMATE 600 MG PO SCH (09:00)
[2019-04-06] MEDS ORDERED: LOSARTAN PO SCH (09:00)
[2019-04-06] MEDS ORDERED: busPIRone 10 MG Tab PO ONE (09:48)
[2019-04-06] MEDS: LAMOTRIGINE 25 MG PO SCH (10:04)
[2019-04-06] MEDS: FELBAMATE 600 MG PO SCH (10:04)
[2019-04-06] MEDS: LAMOTRIGINE 200 MG PO SCH (10:04)
[2019-04-06] MEDS ORDERED: busPIRone 5 MG Tab PO ONE (10:30)
--- NOTE | 2019-04-06 11:01 | PCM.HP ---
H&P History of Present Illness - General Date of Service: 04/06/19 Admit Problem/Dx: Admission Diagnosis/Problem Admission Diagnosis/Problem Chest pain Source of Information: Patient, Old Records - History of Present Illness Initial Comments - Free Text/Narative: 58-year-old male presented to ER yesterday for central, left sided chest pain which has become more frequent & lasting for longer periods of time. He was seen in ER He was placed on losartan yesterday and Catapres today for his blood pressure. Today, he felt that his chest pain was coming more frequently and lasting for longer period of time. He reports that the pain is a dull pain and it is worse with taking a deep breath. No shortness of breath, diaphoresis, neck , jaw or arm pain. Nothing makes pain better or worse. He currently has no pain. He rated his pain as a 0/10 on arrival to ER. He also has had intermittent headaches associated with this. He is having more stress at home, has had markedly elevated blood pressures. No previous stress tests. Recent hip replacement in December 2018. Chest Pain Score (Numeric/FACES): 3 - Related Data Allergies/Adverse Reactions: Allergies Allergy/AdvReac Type Severity Reaction Status Date / Time codeine Allergy Severe Nausea and Verified 04/04/19 16:18 Vomiting Home Medications: Home Meds Felbamate [Felbatol] 1,800 mg PO BID 05/30/16 [History] lamoTRIgine [Lamictal] 200 mg PO BID 05/30/16 [History] Losartan/Hydrochlorothiazide [Losartan-HCTZ 50-12.5 MG] 1 tab PO DAILY 04/04/19 [History] cloNIDine [Catapres] 0.1 mg PO BID 04/05/19 [History] lamoTRIgine [Lamictal] 50 mg PO BID 04/05/19 [History] Past Medical History HEENT History: Reports: None Cardiovascular History: Reports: Hypertension Respiratory History: Reports: None Gastrointestinal History: Reports: Colon Polyp Genitourinary History: Reports: Renal Calculus 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 HAND History: Reports: None Musculoskeletal History: Reports: Fracture Other Musculoskeletal History: hx bilat wrist fx Neurological History: Reports: Seizure, Other (See Below) 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 Psychiatric History: Reports: Addiction, Anxiety, Mood Swings Other Psychiatric History: Hx ETOH abuse, drug abuse Endocrine/Metabolic History: Reports: None Hematologic History: Reports: None Immunologic History: Reports: None Oncologic (Cancer) History: Reports: None Dermatologic History: Reports: None - Infectious Disease History Infectious Disease History: Reports: Chicken Pox - Past Surgical History HEENT Surgical History: Reports: Other (See Below) Other HEENT Surgeries/Procedures: tubes in ears Cardiovascular Surgical History: Reports: None Respiratory Surgical History: Reports: None GI Surgical History: Reports: Colonoscopy Male Surgical History: Reports: None Neurological Surgical History: Reports: Intracranial, Other (See Below) Other Neurological Surgeries/Procedures: scar tissue removed from R side of brain Musculoskeletal Surgical History: Reports: Hip Replacement, ORIF, Other (See Below) Other Musculoskeletal Surgeries/Procedures:: bilat wrist surgery, hip replacement Oncologic Surgical History: Reports: None Dermatological Surgical History: Reports: None Social & Family History - Family History Family Medical History: Noncontributory - Tobacco Use Smoking Status *Q: Current Every Day Smoker Years of Tobacco use: 44 Packs/Tins Daily: 0.5 - Caffeine Use Caffeine Use: Reports: Coffee, Soda, Tea - Recreational Drug Use Recreational Drug Use: No Drug Use in Last 12 Months: No - Living Situation & Occupation Occupation: Disabled H&P Review of Systems - Review of Systems: Review Of Systems: ROS reveals no pertinent complaints other than HPI. Exam - Exam Exam: See Below - Vital Signs Vital Signs: Last Vital Signs Temp 36.8 C 04/06/19 05:00 Pulse 62 04/06/19 05:00 Resp 16 04/06/19 05:00 BP 149/79 H 04/06/19 05:00 Pulse Ox 97 04/06/19 05:00 Weight: 81.647 kg - Exam General: Alert, Oriented, Cooperative Neck: Supple, Trachea Midline, +2 Carotid Pulse wo Bruit Lungs: Clear to Auscultation, Normal Respiratory Effort Cardiovascular: Regular Rate, Regular Rhythm GI/Abdominal Exam: Normal Bowel Sounds, Soft, Non-Tender, No Distention Extremities: Non-Tender, No Pedal Edema - Patient Data Lab Results Last 24 hrs: Laboratory Results - last 24 hr 04/05/19 04/05/19 04/05/19 Range/Units 15:51 15:51 15:51 WBC 10.3 (4.5-12.0) X10-3/uL RBC 6.00 H (4.30-5.75) x10(6)uL Hgb 16.8 (13.5-17.8) g/dL Hct 50.3 (30.0-51.3) % MCV 83.8 (80-96) fL MCH 28.0 (27.7-33.6) pg MCHC 33.4 (32.2-35.4) g/dL RDW 14.4 (11.5-15.5) % Plt Count 583 H (125-369) X10(3)uL MPV 8.9 (7.4-10.4) fL Neut % (Auto) 73.1 (46-82) % Lymph % (Auto) 16.0 (13-37) % [place] % (Auto) 4.4 (4-12) % Eos % (Auto) 4 (1.0-5.0) % Baso % (Auto) 2 (0-2) % Neut # (Auto) 7.6 (1.6-8.3) # Lymph # (Auto) 1.6 (0.6-5.0) # [place] # (Auto) 0.5 (0.0-1.3) # Eos # (Auto) 0.4 (0.0-0.8) # Baso # (Auto) 0.2 (0.0-0.2) # D-Dimer, Quantitative 0.68 H (0.0-0.59) mg/LFEU Sodium 143 (135-145) mmol/L Potassium 3.7 (3.5-5.3) mmol/L Chloride 106 (100-110) mmol/L Carbon Dioxide 26 (21-32) mmol/L BUN 14 (7-18) mg/dL Creatinine 0.8 (0.70-1.30) mg/dL Est Cr Clr Drug Dosing TNP Estimated GFR (MDRD) > 60 (>60) BUN/Creatinine Ratio 17.5 (9-20) Glucose 92 (80-116) mg/dL Calcium 9.0 (8.6-10.2) mg/dL Total Bilirubin 0.4 (0.1-1.3) mg/dL AST 12 D (5-25) IU/L ALT 16 D (12-36) U/L Alkaline Phosphatase 139 H (56-112) IU/L Troponin I (<0.017-0.056) ng/mL Total Protein 6.8 (6.0-8.0) g/dL Albumin 4.0 (3.2-4.6) g/dL Globulin 2.8 g/dL Albumin/Globulin Ratio 1.4 04/05/19 04/06/19 04/06/19 Range/Units 15:51 05:25 05:25 WBC 9.6 (4.5-12.0) X10-3/uL RBC 5.84 H (4.30-5.75) x10(6)uL Hgb 16.4 (13.5-17.8) g/dL Hct 49.1 (30.0-51.3) % MCV 84.1 (80-96) fL MCH 28.2 (27.7-33.6) pg MCHC 33.5 (32.2-35.4) g/dL RDW 15.0 (11.5-15.5) % Plt Count 594 H (125-369) X10(3)uL MPV (7.4-10.4) fL Neut % (Auto) (46-82) % Lymph % (Auto) (13-37) % [place] % (Auto) (4-12) % Eos % (Auto) (1.0-5.0) % Baso % (Auto) (0-2) % Neut # (Auto) (1.6-8.3) # Lymph # (Auto) (0.6-5.0) # [place] # (Auto) (0.0-1.3) # Eos # (Auto) (0.0-0.8) # Baso # (Auto) (0.0-0.2) # D-Dimer, Quantitative (0.0-0.59) mg/LFEU Sodium 142 (135-145) mmol/L Potassium 3.6 (3.5-5.3) mmol/L Chloride 105 (100-110) mmol/L Carbon Dioxide 28 (21-32) mmol/L BUN 12 (7-18) mg/dL Creatinine 0.8 (0.70-1.30) mg/dL Est Cr Clr Drug Dosing 107.78 Estimated GFR (MDRD) > 60 (>60) BUN/Creatinine Ratio 15.0 (9-20) Glucose 92 (80-116) mg/dL Calcium 8.7 (8.6-10.2) mg/dL Total Bilirubin 0.4 (0.1-1.3) mg/dL AST 14 D (5-25) IU/L ALT 16 (12-36) U/L Alkaline Phosphatase 132 H (56-112) IU/L Troponin I < 0.017 L (<0.017-0.056) ng/mL Total Protein 6.6 (6.0-8.0) g/dL Albumin 3.8 (3.2-4.6) g/dL Globulin 2.8 g/dL Albumin/Globulin Ratio 1.4 04/06/19 Range/Units 05:25 WBC (4.5-12.0) X10-3/uL RBC (4.30-5.75) x10(6)uL Hgb (13.5-17.8) g/dL Hct (30.0-51.3) % MCV (80-96) fL MCH (27.7-33.6) pg MCHC (32.2-35.4) g/dL RDW (11.5-15.5) % Plt Count (125-369) X10(3)uL MPV (7.4-10.4) fL Neut % (Auto) (46-82) % Lymph % (Auto) (13-37) % [place] % (Auto) (4-12) % Eos % (Auto) (1.0-5.0) % Baso % (Auto) (0-2) % Neut # (Auto) (1.6-8.3) # Lymph # (Auto) (0.6-5.0) # [place] # (Auto) (0.0-1.3) # Eos # (Auto) (0.0-0.8) # Baso # (Auto) (0.0-0.2) # D-Dimer, Quantitative (0.0-0.59) mg/LFEU Sodium (135-145) mmol/L Potassium (3.5-5.3) mmol/L Chloride (100-110) mmol/L Carbon Dioxide (21-32) mmol/L BUN (7-18) mg/dL Creatinine (0.70-1.30) mg/dL Est Cr Clr Drug Dosing Estimated GFR (MDRD) (>60) BUN/Creatinine Ratio (9-20) Glucose (80-116) mg/dL Calcium (8.6-10.2) mg/dL Total Bilirubin (0.1-1.3) mg/dL AST (5-25) IU/L ALT (12-36) U/L Alkaline Phosphatase (56-112) IU/L Troponin I < 0.017 L (<0.017-0.056) ng/mL Total Protein (6.0-8.0) g/dL Albumin (3.2-4.6) g/dL Globulin g/dL Albumin/Globulin Ratio Result Diagrams: 04/06/19 05:25 04/06/19 05:25 EKG INTERPRETATION EKG Date: 04/06/19 Time: 05:17 Rhythm: NSR Rate (Beats/Min): 53 [place]: Normal P-Wave: Present QRS: Wide (115ms but no RBBB/LBBB) ST-T: Normal QT: Normal Comparison: No Change EKG Interpretation Comments: Normal Sinus rhythm, nonspecific conduction delay(QRS>115ms but no RBBB/LBBB). No signs of ischemia/infarct. No change from previous EKG from 04/04 & 04/05/19. - Problem List (1) Chest pain SNOMED Code(s): 76637323 ICD Code: R07.9 - CHEST PAIN, UNSPECIFIED Status: Acute Current Visit: Yes Qualifiers: Chest pain type: unspecified Qualified Code(s): R07.9 - Chest pain, unspecified (2) HTN (hypertension) SNOMED Code(s): 75839321 ICD Code: I10 - ESSENTIAL (PRIMARY) HYPERTENSION Status: Acute Current Visit: Yes Qualifiers: Hypertension type: unspecified Qualified Code(s): I10 - Essential (primary ) hypertension (3) Anxiety SNOMED Code(s): 22645535 ICD Code: F41.9 - ANXIETY DISORDER, UNSPECIFIED Status: Acute Current Visit: No (4) Thrombocytosis SNOMED Code(s): 5703561 ICD Code: D47.3 - ESSENTIAL (HEMORRHAGIC) THROMBOCYTHEMIA Status: Acute Current Visit: Yes Problem List Initiated/Reviewed/Updated: Yes Orders Last 24hrs: Active Orders 24 hr Category Date Time Status Patient Status [ADT] Routine ADT 04/05/19 18:45 Active EKG Documentation Completion [RC] ASDIRECTED Care 04/05/19 15:43 Active EKG Documentation Completion [RC] ASDIRECTED Care 04/05/19 18:48 Active Oxygen Therapy [RC] PRN Care 04/05/19 18:45 Active Up ad [place] [RC] ASDIRECTED Care 04/05/19 18:45 Active VTE/DVT Education [RC] Per Unit Routine Care 04/05/19 18:45 Active Vital Signs [RC] Q4H Care 04/05/19 18:45 Active Ang Chest [CT] Stat Exams 04/05/19 16:42 Taken Ketorolac [Toradol] Med 04/05/19 18:45 Active 30 mg IM Q6H PRN Patient's Own Medication [Ptom] Med 04/06/19 09:00 Active 1 each PO DAILY Patient's Own Medication [Ptom] Med 04/05/19 22:45 Active 3 each PO BID Sodium Chloride 0.9% [Saline Flush] Med 04/05/19 15:42 Active 10 ml FLUSH ASDIRECTED PRN lamoTRIgine Med 04/05/19 22:45 Active 50 mg PO BID lamoTRIgine [LaMICtal] Med 04/05/19 22:45 Active 200 mg PO BID Peripheral IV Insertion Adult [OM.PC] Routine Oth 04/05/19 15:42 Ordered Resuscitation Status Routine Resus Stat 04/05/19 18:45 Ordered EKG 12 Lead [EK] AM Ther 04/06/19 05:11 Ordered EKG 12 Lead [EK] Routine Ther 04/05/19 15:42 Ordered Medication Orders Ketorolac Tromethamine (Toradol) 30 mg IM Q6H PRN PRN Reason: Pain (moderate 4-6) Lamotrigine (Lamotrigine) 50 mg PO BID [facility] Last Admin: 04/06/19 10:04 Dose: 50 mg Admin: 04/05/19 22:00 Dose: Not Given Lamotrigine (Lamictal) 200 mg PO BID [facility] Last Admin: 04/06/19 10:04 Dose: 200 mg Admin: 04/05/19 22:00 Dose: Not Given Patient's Own Medication 1 Each Losartan/Hctz 50/12. 5 Mg 1 each PO DAILY [facility] Last Admin: 04/06/19 10:04 Dose: 1 each Patient's Own Medication 1 Each Felbamate 600 Mg 3 each PO BID [facility] Last Admin: 04/06/19 10:04 Dose: 3 each Admin: 04/05/19 22:00 Dose: Not Given Sodium Chloride (Saline Flush) 10 ml FLUSH ASDIRECTED PRN PRN Reason: Keep Vein Open Last Admin: 04/05/19 21:33 Dose: 10 ml Assessment/Plan Comment:: 1. Admitted for observation ACS rule out, serial cardiac enzymes, telemetry. 2. Monitor blood pressures and start clonidine if remains elevated after BuSpar. 3. Increased stress at home, has not been on any antianxiety medications before. No interactions found with his seizure medications so will try BuSpar to see if it helps with symptoms. Recheck his blood pressure, if controlled with Losartan/HCTZ will hold Clonidine, if elevated will start(he just picked up script yesterday and taken 1 dose). Also Losartan/HCTZ was started 04/04 so today is day 3 of that medication. 4. If negative sets of cardiac enzymes then will set up Cardiolite stress test in [facility] since his recent hip replacement he would not be able to do treadmill stress test at [facility]. 5. Platelets 594, may be reactive due to his recent stress, will have him follow up with Dr Jacobson for repeat CBC if he goes home today. 6. Full code.
[2019-04-06 12:58] VITALS: PULSE 68
[2019-04-06 14:40] VITALS: BP 152/76
--- NOTE | 2019-04-06 15:17 | PCM.DCSUM1 ---
Discharge Summary - Hospital Course HPI Initial Comments: Patient is 58 yr old male that presented to ER with central/left sided chest pain and elevated blood pressure, he had been seen in ER previous night with high blood pressure, started on Losartan/HCTZ and seen yesterday in the clinic where clonidine was added(1 dose taken). No diaphoresis, radiation to neck, jaw or arm. No shortness of breath. No nausea/vomiting. Admits to increased stress over the last 3 weeks, feeling more anger than nervousness about his home situation. No previous stress test. Recent left total hip arthroplasty in December 2018. Diagnosis: Stroke: No - Discharge Data Discharge Date: 04/06/19 Discharge Disposition: Home, Self-Care 01 Condition: Good - Discharge Diagnosis/Problem(s) (1) Chest pain SNOMED Code(s): 82531763 ICD Code: R07.9 - CHEST PAIN, UNSPECIFIED Status: Resolved Current Visit : Yes Qualifiers: Chest pain type: unspecified Qualified Code(s): R07.9 - Chest pain, unspecified (2) HTN (hypertension) SNOMED Code(s): 26088723 ICD Code: I10 - ESSENTIAL (PRIMARY) HYPERTENSION Status: Acute Current Visit: Yes Qualifiers: Hypertension type: unspecified Qualified Code(s): I10 - Essential (primary ) hypertension (3) Anxiety SNOMED Code(s): 72996796 ICD Code: F41.9 - ANXIETY DISORDER, UNSPECIFIED Status: Acute Current Visit: No (4) Thrombocytosis SNOMED Code(s): 6179734 ICD Code: D47.3 - ESSENTIAL (HEMORRHAGIC) THROMBOCYTHEMIA Status: Acute Current Visit: Yes - Patient Summary/Data Recommended Follow-up Testing/Procedures: Cardiolite stress test re: recent chest pain. Repeat CBC re: thrombocytosis. Hospital Course: Patient was admitted to floor, telemetry showed normal sinus during entire hospital course, rate would get to 50s during sleep but no other arrhythmias noted. 3 set of cardiac enzymes were normal, no return of chest pain. Blood pressure was 160s, discussed situation at home and started BuSpar to see if it helped. 1 dose of BuSpar given, patient did not feel drowsy or tired from medication but felt more calm. His and daughter arrived, he felt calm and more relaxed during the visit. His blood pressure came down to 140s and 150s over 70s. He has appt with Dr Jacobson already for Monday at 1245 pm, stated he has had elevated platelets in the past but not as high as this morning at 594. Advised he will need to get recheck of his platelets on Monday when he is seen. Will get Cardiolite [facility] is [facility] on Monday. - Patient Instructions Diet: Heart Healthy Diet Activity: As Tolerated Notify Provider of: Increased Pain (elevated blood pressure, return of chest pain) - Discharge Plan *PRESCRIPTION DRUG MONITORING PROGRAM REVIEWED*: Not Applicable *COPY OF PRESCRIPTION DRUG MONITORING REPORT IN PATIENT NANCY: No Prescriptions/Med Rec: busPIRone [Buspar] 10 mg PO TID PRN 14 Days #42 tab PRN Reason: Anxiety Home Medications: Home Meds Felbamate [Felbatol] 1,800 mg PO BID 05/30/16 [History] lamoTRIgine [Lamictal] 200 mg PO BID 05/30/16 [History] Losartan/Hydrochlorothiazide [Losartan-HCTZ 50-12.5 MG] 1 tab PO DAILY 04/04/19 [History] lamoTRIgine [Lamictal] 50 mg PO BID 04/05/19 [History] busPIRone [Buspar] 10 mg PO TID PRN 14 Days #42 tab 04/06/19 [Rx] Patient Handouts: Steps to Quit Smoking, [id number], Smoking Tobacco Information, Adult, Chest Wall Pain, [id number] Forms: ED Department Discharge Referrals: Rey Jacobson MD [Primary Care Provider] - - Discharge Summary/Plan Comment DC Time >30 min.: Yes - Patient Data Vitals - Most Recent: Last Vital Signs Temp 36.7 C 04/06/19 12:00 Pulse 68 04/06/19 14:39 Resp 16 04/06/19 14:39 BP 152/76 H 04/06/19 14:39 Pulse Ox 97 04/06/19 12:00 Weight - Most Recent: 81.647 kg Lab Results - Last 24 hrs: Laboratory Results - last 24 hr 04/05/19 04/05/19 04/05/19 Range/Units 15:51 15:51 15:51 WBC 10.3 (4.5-12.0) X10-3/uL RBC 6.00 H (4.30-5.75) x10(6)uL Hgb 16.8 (13.5-17.8) g/dL Hct 50.3 (30.0-51.3) % MCV 83.8 (80-96) fL MCH 28.0 (27.7-33.6) pg MCHC 33.4 (32.2-35.4) g/dL RDW 14.4 (11.5-15.5) % Plt Count 583 H (125-369) X10(3)uL MPV 8.9 (7.4-10.4) fL Neut % (Auto) 73.1 (46-82) % Lymph % (Auto) 16.0 (13-37) % [place] % (Auto) 4.4 (4-12) % Eos % (Auto) 4 (1.0-5.0) % Baso % (Auto) 2 (0-2) % Neut # (Auto) 7.6 (1.6-8.3) # Lymph # (Auto) 1.6 (0.6-5.0) # [place] # (Auto) 0.5 (0.0-1.3) # Eos # (Auto) 0.4 (0.0-0.8) # Baso # (Auto) 0.2 (0.0-0.2) # D-Dimer, Quantitative 0.68 H (0.0-0.59) mg/LFEU Sodium 143 (135-145) mmol/L Potassium 3.7 (3.5-5.3) mmol/L Chloride 106 (100-110) mmol/L Carbon Dioxide 26 (21-32) mmol/L BUN 14 (7-18) mg/dL Creatinine 0.8 (0.70-1.30) mg/dL Est Cr Clr Drug Dosing TNP Estimated GFR (MDRD) > 60 (>60) BUN/Creatinine Ratio 17.5 (9-20) Glucose 92 (80-116) mg/dL Calcium 9.0 (8.6-10.2) mg/dL Total Bilirubin 0.4 (0.1-1.3) mg/dL AST 12 D (5-25) IU/L ALT 16 D (12-36) U/L Alkaline Phosphatase 139 H (56-112) IU/L Troponin I (<0.017-0.056) ng/mL Total Protein 6.8 (6.0-8.0) g/dL Albumin 4.0 (3.2-4.6) g/dL Globulin 2.8 g/dL Albumin/Globulin Ratio 1.4 04/05/19 04/06/19 04/06/19 Range/Units 15:51 05:25 05:25 WBC 9.6 (4.5-12.0) X10-3/uL RBC 5.84 H (4.30-5.75) x10(6)uL Hgb 16.4 (13.5-17.8) g/dL Hct 49.1 (30.0-51.3) % MCV 84.1 (80-96) fL MCH 28.2 (27.7-33.6) pg MCHC 33.5 (32.2-35.4) g/dL RDW 15.0 (11.5-15.5) % Plt Count 594 H (125-369) X10(3)uL MPV (7.4-10.4) fL Neut % (Auto) (46-82) % Lymph % (Auto) (13-37) % [place] % (Auto) (4-12) % Eos % (Auto) (1.0-5.0) % Baso % (Auto) (0-2) % Neut # (Auto) (1.6-8.3) # Lymph # (Auto) (0.6-5.0) # [place] # (Auto) (0.0-1.3) # Eos # (Auto) (0.0-0.8) # Baso # (Auto) (0.0-0.2) # D-Dimer, Quantitative (0.0-0.59) mg/LFEU Sodium 142 (135-145) mmol/L Potassium 3.6 (3.5-5.3) mmol/L Chloride 105 (100-110) mmol/L Carbon Dioxide 28 (21-32) mmol/L BUN 12 (7-18) mg/dL Creatinine 0.8 (0.70-1.30) mg/dL Est Cr Clr Drug Dosing 107.78 Estimated GFR (MDRD) > 60 (>60) BUN/Creatinine Ratio 15.0 (9-20) Glucose 92 (80-116) mg/dL Calcium 8.7 (8.6-10.2) mg/dL Total Bilirubin 0.4 (0.1-1.3) mg/dL AST 14 D (5-25) IU/L ALT 16 (12-36) U/L Alkaline Phosphatase 132 H (56-112) IU/L Troponin I < 0.017 L (<0.017-0.056) ng/mL Total Protein 6.6 (6.0-8.0) g/dL Albumin 3.8 (3.2-4.6) g/dL Globulin 2.8 g/dL Albumin/Globulin Ratio 1.4 04/06/19 Range/Units 05:25 WBC (4.5-12.0) X10-3/uL RBC (4.30-5.75) x10(6)uL Hgb (13.5-17.8) g/dL Hct (30.0-51.3) % MCV (80-96) fL MCH (27.7-33.6) pg MCHC (32.2-35.4) g/dL RDW (11.5-15.5) % Plt Count (125-369) X10(3)uL MPV (7.4-10.4) fL Neut % (Auto) (46-82) % Lymph % (Auto) (13-37) % [place] % (Auto) (4-12) % Eos % (Auto) (1.0-5.0) % Baso % (Auto) (0-2) % Neut # (Auto) (1.6-8.3) # Lymph # (Auto) (0.6-5.0) # [place] # (Auto) (0.0-1.3) # Eos # (Auto) (0.0-0.8) # Baso # (Auto) (0.0-0.2) # D-Dimer, Quantitative (0.0-0.59) mg/LFEU Sodium (135-145) mmol/L Potassium (3.5-5.3) mmol/L Chloride (100-110) mmol/L Carbon Dioxide (21-32) mmol/L BUN (7-18) mg/dL Creatinine (0.70-1.30) mg/dL Est Cr Clr Drug Dosing Estimated GFR (MDRD) (>60) BUN/Creatinine Ratio (9-20) Glucose (80-116) mg/dL Calcium (8.6-10.2) mg/dL Total Bilirubin (0.1-1.3) mg/dL AST (5-25) IU/L ALT (12-36) U/L Alkaline Phosphatase (56-112) IU/L Troponin I < 0.017 L (<0.017-0.056) ng/mL Total Protein (6.0-8.0) g/dL Albumin (3.2-4.6) g/dL Globulin g/dL Albumin/Globulin Ratio Med Orders - Current: Current Medications Ketorolac Tromethamine (Toradol) 30 mg IM Q6H PRN PRN Reason: Pain (moderate 4-6) Lamotrigine (Lamotrigine) 50 mg PO BID [facility] Last Admin: 04/06/19 10:04 Dose: 50 mg Lamotrigine (Lamictal) 200 mg PO BID [facility] Last Admin: 04/06/19 10:04 Dose: 200 mg Patient's Own Medication 1 Each Losartan/Hctz 50/12. 5 Mg 1 each PO DAILY [facility] Last Admin: 04/06/19 10:04 Dose: 1 each Patient's Own Medication 1 Each Felbamate 600 Mg 3 each PO BID [facility] Last Admin: 04/06/19 10:04 Dose: 3 each Sodium Chloride (Saline Flush) 10 ml FLUSH ASDIRECTED PRN PRN Reason: Keep Vein Open Last Admin: 04/05/19 21:33 Dose: 10 ml Discontinued Medications Aspirin (Aspirin) 324 mg PO ONETIME ONE Stop: 04/05/19 15:53 Last Admin: 04/05/19 16:00 Dose: 324 mg Buspirone HCl (Buspar) 10 mg PO ONETIME ONE Stop: 04/06/19 09:49 Last Admin: 04/06/19 10:31 Dose: Not Given Buspirone HCl (Buspar) 10 mg PO ONETIME ONE Stop: 04/06/19 10:31 Last Admin: 04/06/19 10:31 Dose: 10 mg Iopamidol (Isovue-370 (76%)) 75 ml IV ONETIME ONE Stop: 04/05/19 17:05 Last Admin: 04/05/19 17:11 Dose: 75 ml Labetalol HCl (Normodyne) 10 mg IVPUSH ONETIME ONE; Protocol Stop: 04/05/19 18:46 Labetalol HCl (Normodyne) 10 mg IVPUSH ONETIME ONE; Protocol Stop: 04/05/19 21:15 Last Admin: 04/05/19 21:28 Dose: 10 mg Lamotrigine (Lamictal) 200 mg PO BID [facility] Non-Formulary Medication (Felbamate [Felbatol]) 1,800 mg PO BID [facility] Last Admin: 04/05/19 22:00 Dose: 1,800 mg Non-Formulary Medication (Lamotrigine [Lamictal]) 250 mg PO BID [facility] Last Admin: 04/05/19 22:00 Dose: 250 mg Patient's Own Medication 1 Each Felbamate 600 Mg 1,800 each PO BID [facility] - Exam Lungs: Reports: Clear to Auscultation, Normal Respiratory Effort Cardiovascular: Reports: Regular Rate, Regular Rhythm GI/Abdominal Exam: Normal Bowel Sounds, Soft, Non-Tender, No Distention
--- NOTE | 2019-04-08 09:17 | CT ---
INDICATION: Chest pain with elevated D-dimer, question PE. COMPUTERIZED TOMOGRAPHY ANGIOGRAPHY OF THE CHEST WITH CONTRAST: Spiral 1.25 mm axial sections were obtained through the chest with 75 mL Isovue 370 at 3 mL/ second, with sagittal and coronal reconstructions, 04/05/19 - no comparisons. Total exam DLP = 489.79 mGy-cm. A definite active infiltrate or effusion was not identified. There is evidence of moderately severe to severe lobar emphysema. No evidence of pulmonary emboli could be identified. The heart appeared prominent in size. No mediastinal mass was seen. Although mediastinal lymphadenopathy is present, it is nonspecific and moderate in degree. IMPRESSION: 1. No evidence of PE. 2. Lobar emphysema. Report was called to Dr. Rey Jacobson at 1833 hours on 04/05/19. [facility]
== END 2019-04-06 15:48 | disposition home or self-care (01) ==
LOC: FB.ED 15:05 → FB.MS 18:45
PROVIDERS: ADMIT Family Medicine; ATTEND Family Medicine
DX: R07.9 Chest pain, unspecified (principal); I10 Essential (primary) hypertension; F41.9 Anxiety disorder, unspecified; D47.3 Essential (hemorrhagic) thrombocythemia; R56.9 Unspecified convulsions; F17.210 Nicotine dependence, cigarettes, uncomplicated; Z79.899 Other long term (current) drug therapy; Z88.5 Allergy status to narcotic agent
CPT/HCPCS: 36415; 71275; 80053; 84484; 85025; 85027; 85379; 93005; 96374; 99285; A9270; G0378; J3490; Q9967

== ENCOUNTER 2019-05-07 09:17 | Emergency (ER) | payer MEDICARE, OTHER ==
[2019-05-07] MEDS ORDERED: Nitroglycerin 0.4 MG Tab.SL SL ONE ×2 (09:18→09:47)
[2019-05-07] MEDS ORDERED: Aspirin 81 MG Tab.Chew PO ONE (09:44)
[2019-05-07] MEDS ORDERED: Sodium Chloride 0.9% 500 ML IV ONE (11:44)
--- NOTE | 2019-05-07 12:28 | EDM.PDOC ---
ED HPI GENERAL MEDICAL PROBLEM - General Chief Complaint: Chest Pain Stated Complaint: HIGH B/P Time Seen by Provider: 05/07/19 09:28 Source of Information: Reports: Patient, Old Records, Significant Other History Limitations: Reports: No Limitations - History of Present Illness INITIAL COMMENTS - FREE TEXT/NARRATIVE: patient is a very pleasant 58-year-old male who presents today with left-sided chest pain which has been going on over the last month. He notes that it is worse when his going upstairs, and also worse when his talking to his daughter which has been a situation causing an extreme amount of stress in his life lately. He does sometimes have to rest after getting to the top of the stairs because he feels slightly short of breath. He denies any change in the pain at rest, and denies any acute changes in the past 24 hours. His blood pressure was noted to be elevated at occupational therapy appointment this morning and after calling seed sorter he was sent here to be evaluated. He was recently admitted here for ACS r/o out and subsequently had a stress test. He states the results were lower heart output and he is scheduled to see cardiology on 05/14. He has been taking his blood pressure medication regularly but states the number is often still high. He does not check it at home. He denies headache, changes in vision, hearing, any relation to his chest pain, or any other concerns such as recent infectious symptoms. He is not taking any over -the-counter medications. He does still smoke approximately half pack per day, and has been working it down. He denies any alcohol or other drug use currently. No immediate family history of coronary artery disease, states that his parents never had any heart attacks and isn't sure of rest. Left Chest Pain Score (Numeric/FACES): 5 - Related Data Allergies Allergy/AdvReac Type Severity Reaction Status Date / Time codeine Allergy Severe Nausea and Verified 05/07/19 09:44 Vomiting Home Meds: Home Meds Felbamate [Felbatol] 1,800 mg PO BID 05/30/16 [History] lamoTRIgine [Lamictal] 200 mg PO BID 05/30/16 [History] Losartan/Hydrochlorothiazide [Losartan-HCTZ 50-12.5 MG] 1 tab PO DAILY 04/04/19 [History] lamoTRIgine [Lamictal] 50 mg PO BID 04/05/19 [History] busPIRone [Buspar] 10 mg PO TID PRN 14 Days #42 tab 04/06/19 [Rx] Past Medical History HEENT History: Reports: None Cardiovascular History: Reports: Hypertension Respiratory History: Reports: None Gastrointestinal History: Reports: Colon Polyp Genitourinary History: Reports: Renal Calculus XRAY TECH History: Reports: None Musculoskeletal History: Reports: Fracture Other Musculoskeletal History: hx bilat wrist fx Neurological History: Reports: Seizure, Other (See Below) 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 Psychiatric History: Reports: Addiction, Anxiety, Mood Swings Other Psychiatric History: Hx ETOH abuse, drug abuse Endocrine/Metabolic History: Reports: None Hematologic History: Reports: None Immunologic History: Reports: None Oncologic (Cancer) History: Reports: None Dermatologic History: Reports: None - Infectious Disease History Infectious Disease History: Reports: Chicken Pox - Past Surgical History HEENT Surgical History: Reports: Other (See Below) Other HEENT Surgeries/Procedures: tubes in ears Cardiovascular Surgical History: Reports: None Respiratory Surgical History: Reports: None GI Surgical History: Reports: Colonoscopy Male Surgical History: Reports: None Neurological Surgical History: Reports: Intracranial, Other (See Below) Other Neurological Surgeries/Procedures: scar tissue removed from R side of brain Musculoskeletal Surgical History: Reports: Hip Replacement, ORIF, Other (See Below) Other Musculoskeletal Surgeries/Procedures:: bilat wrist surgery, hip replacement Oncologic Surgical History: Reports: None Dermatological Surgical History: Reports: None Social & Family History - Family History Family Medical History: Noncontributory - Tobacco Use Smoking Status *Q: Current Every Day Smoker Years of Tobacco use: 10 Packs/Tins Daily: 0.5 - Caffeine Use Caffeine Use: Reports: Coffee, Soda, Tea - Alcohol Use Alcohol Use History: No - Recreational Drug Use Recreational Drug Use: No - Living Situation & Occupation Occupation: Disabled Social History Comment: significant psychosocial stress with daughters ED ROS GENERAL - Review of Systems Review Of Systems: ROS reveals no pertinent complaints other than HPI. ED EXAM, GENERAL - Physical Exam Exam: See Below Free Text/Narrative:: Gen.: Alert, very pleasant and not acutely distressed. Perseverates on situation at home. head atraumatic. Pupils equal and reactive. Throat is without erythema, mucous murmurs are moist. Neck is supple and there is no cervical lymph adenopathy. Lungs are clear throughout with no wheezes or crackles and heart is regular rate and rhythm, I do not hear murmur. Abdomen positive bowel sounds, soft nontender. Peripheral pulses +2 in the upper and lower extremities and equal bilaterally. Strength is equal side to side and his gait is normal. EKG INTERPRETATION Rhythm: NSR [place]: Normal P-Wave: Present QRS: Normal Comparison: No Change Course - Vital Signs Text/Narrative:: asymptomatic elevated blood pressure sent over from OT. he is 154/78 on arrival here. He has chest pain but that has been chronic in nature, although maybe some slight worsening when he has just taken a flight of stairs. We'll get baseline labs, troponin, EKG does not show any significant changes from the previous. Patient under significant psychosocial stress as regards his family dynamics. Last Recorded V/S: Last Vital Signs Temp 36.2 C 05/07/19 09:17 Pulse 76 05/07/19 09:17 Resp 20 05/07/19 09:17 BP 154/88 H 05/07/19 09:43 Pulse Ox 100 05/07/19 09:17 - Orders/Labs/Meds Orders: Active Orders 24 hr Category Date Time Status EKG Documentation Completion [RC] ASDIRECTED Care 05/07/19 09:57 Active EKG Documentation Completion [RC] ASDIRECTED Care 05/07/19 11:16 Active EKG 12 Lead [EK] Routine Ther 05/07/19 09:57 Ordered EKG 12 Lead [EK] Routine Ther 05/07/19 11:15 Ordered Labs: Laboratory Tests 05/07/19 05/07/19 05/07/19 Range/Units 10:00 10:00 10:00 WBC 9.8 (4.5-12.0) X10-3/uL RBC 6.23 H (4.30-5.75) x10(6)uL Hgb 17.6 (13.5-17.8) g/dL Hct 52.0 H (30.0-51.3) % MCV 83.5 (80-96) fL MCH 28.2 (27.7-33.6) pg MCHC 33.8 (32.2-35.4) g/dL RDW 16.1 H (11.5-15.5) % Plt Count 623 H (125-369) X10(3)uL MPV 8.4 (7.4-10.4) fL Neut % (Auto) 76.1 (46-82) % Lymph % (Auto) 14.5 (13-37) % [place] % (Auto) 4.4 (4-12) % Eos % (Auto) 4 (1.0-5.0) % Baso % (Auto) 1 (0-2) % Neut # (Auto) 7.5 (1.6-8.3) # Lymph # (Auto) 1.4 (0.6-5.0) # [place] # (Auto) 0.4 (0.0-1.3) # Eos # (Auto) 0.4 (0.0-0.8) # Baso # (Auto) 0.1 (0.0-0.2) # Sodium 142 (135-145) mmol/L Potassium 3.8 (3.5-5.3) mmol/L Chloride 105 (100-110) mmol/L Carbon Dioxide 28 (21-32) mmol/L BUN 26 H D (7-18) mg/dL Creatinine 0.8 (0.70-1.30) mg/dL Est Cr Clr Drug Dosing 110.97 mL/min Estimated GFR (MDRD) > 60 (>60) BUN/Creatinine Ratio 32.5 H (9-20) Glucose 104 (80-116) mg/dL Calcium 9.1 (8.6-10.2) mg/dL Magnesium 1.8 (1.8-2.5) mg/dL Troponin I < 0.017 L (<0.017-0.056) ng/mL C-Reactive Protein < 0.2 L (0.5-0.9) mg/dL Meds: Medications Discontinued Medications Generic Name Dose Route Start Last Admin Trade Name Freq PRN Reason Stop Dose Admin Aspirin 324 mg 05/07/19 09:44 05/07/19 09:40 Aspirin PO 05/07/19 09:45 324 mg ONETIME ONE Administration Sodium Chloride 500 mls @ 999 mls/hr 05/07/19 11:44 Normal Saline IV 05/07/19 12:14 .BOLUS ONE Nitroglycerin 0.4 mg 05/07/19 09:47 05/07/19 09:43 Nitrostat SL 05/07/19 09:48 0.4 mg ONETIME ONE Administration - Re-Assessments/Exams Free Text/Narrative Re-Assessment/Exam: 05/07/19 review of labs, elevated platelets which appears to be chronic, negative troponin, BUN slightly elevated but otherwise no abnormalities in electrolytes and renal function. Patient's pain did not change after a dose of nitroglycerin. He is attempting to get into the [facility] chart to look at the recent stress echo report. Free Text/Narrative Re-Assessment/Exam: 05/07/19 patient remains asymptomatic and his blood pressure came down nicely after the nitroglycerin and has remained much lower than was reported in the outpatient side prior to arrival. His troponin was negative and I again confirmed with him that there is nothing any acute changes in his functional status, chest pain or any other symptoms that occurred within the past 24 hours to suggest a subacute [place] or other cause for chest pain such as a pneumonia or PE. Discussed admission for observation versus discharge to home and he would much prefer discharged home. I do think at this point it is appropriate for him to have some nitroglycerin and he was instructed in its use. Follow up as scheduled with cardiology and PCP. Departure - Departure Time of Disposition: 12:29 Disposition: Home, Self-Care 01 Condition: Good Clinical Impression: Chest pain in adult - Discharge Information *PRESCRIPTION DRUG MONITORING PROGRAM REVIEWED*: Not Applicable *COPY OF PRESCRIPTION DRUG MONITORING REPORT IN PATIENT NANCY: Not Applicable Instructions: Nonspecific Chest Pain, [id number] Referrals: Rey Jacobson MD [Primary Care Provider] - Forms: ED Department Discharge Additional Instructions: Nitroglycerin given today, use as per instructions. Return to ED if worsening chest pain, feeling significantly short of breath, pain in arm or jaw, nausea especially if any vomiting, sweaty Follow-up with cardiology as scheduled and continue to follow with primary as well. - My Orders Last 24 Hours: My Active Orders 05/07/19 09:57 EKG Documentation Completion [RC] ASDIRECTED EKG 12 Lead [EK] Routine 05/07/19 11:15 EKG 12 Lead [EK] Routine 05/07/19 11:16 EKG Documentation Completion [RC] ASDIRECTED - Assessment/Plan Last 24 Hours: My Active Orders 05/07/19 09:57 EKG Documentation Completion [RC] ASDIRECTED EKG 12 Lead [EK] Routine 05/07/19 11:15 EKG 12 Lead [EK] Routine 05/07/19 11:16 EKG Documentation Completion [RC] ASDIRECTED
[2019-05-07 17:17] VITALS: BP 143/92; PULSE 54
== END 2019-05-07 12:56 | disposition home or self-care (01) ==
LOC: FB.ED 09:17
DX: R07.9 Chest pain, unspecified (principal); I10 Essential (primary) hypertension; F41.9 Anxiety disorder, unspecified; F17.210 Nicotine dependence, cigarettes, uncomplicated; Z88.5 Allergy status to narcotic agent; Z79.899 Other long term (current) drug therapy
CPT/HCPCS: 36415; 80048; 83735; 84484; 85025; 86140; 93005; 99285; A9270; J7040

== ENCOUNTER 2019-05-10 16:59 | Emergency (ER) | payer MEDICARE, OTHER ==
--- NOTE | 2019-05-10 18:28 | EDM.PDOC ---
ED HPI GENERAL MEDICAL PROBLEM - General Stated Complaint: CHEST PAIN AFTER SOB Time Seen by Provider: 05/10/19 17:15 Source of Information: Reports: Patient History Limitations: Reports: No Limitations - History of Present Illness INITIAL COMMENTS - FREE TEXT/NARRATIVE: Patient is a very pleasant 58-year-old male who returns today with concern for left sided chest pain over the course of the day, feeling short of breath on the stairs and a few palpitations. He states that over the last couple of hours his pain has been somewhat persistent, although not really changed from prior. He has no significant chest pressure, no sweats, no nausea or vomiting, and no change in his shortness of breath which is only occurs on exertion, no radiation to his arm or jaw. He has multiple cardiac risk factors and was seen in the emergency room earlier this week for an ACS rule out and is scheduled to see cardiology on Monday. He has already had a cardiac stress test. He was started on long-acting nitroglycerin by his primary, which he took this morning. He did not try any sublingual nitroglycerin at home. He continues to have a lot of stress in his life which he is very focused on left chest Pain Score (Numeric/FACES): 3 - Related Data Allergies Allergy/AdvReac Type Severity Reaction Status Date / Time codeine Allergy Severe Nausea and Verified 05/07/19 09:44 Vomiting Home Meds: Home Meds RX: Felbamate [Felbatol] 1,800 mg PO BID 05/30/16 [History] RX: lamoTRIgine [Lamictal] 200 mg PO BID 05/30/16 [History] RX: Losartan/Hydrochlorothiazide [Losartan-HCTZ 50-12.5 MG] 1 tab PO DAILY 04/04 [History] RX: lamoTRIgine [Lamictal] 50 mg PO BID 04/05/19 [History] RX: busPIRone [Buspar] 10 mg PO TID PRN 14 Days #42 tab 04/06/19 [Rx] Past Medical History HEENT History: Reports: None Cardiovascular History: Reports: Hypertension Respiratory History: Reports: None Gastrointestinal History: Reports: Colon Polyp Genitourinary History: Reports: Renal Calculus TEST CONDUCTOR History: Reports: None Musculoskeletal History: Reports: Fracture Other Musculoskeletal History: hx bilat wrist fx Neurological History: Reports: Seizure, Other (See Below) 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 Psychiatric History: Reports: Addiction, Anxiety, Mood Swings Other Psychiatric History: Hx ETOH abuse, drug abuse Endocrine/Metabolic History: Reports: None Hematologic History: Reports: None Immunologic History: Reports: None Oncologic (Cancer) History: Reports: None Dermatologic History: Reports: None - Infectious Disease History Infectious Disease History: Reports: Chicken Pox - Past Surgical History HEENT Surgical History: Reports: Other (See Below) Other HEENT Surgeries/Procedures: tubes in ears Cardiovascular Surgical History: Reports: None Respiratory Surgical History: Reports: None GI Surgical History: Reports: Colonoscopy Male Surgical History: Reports: None Neurological Surgical History: Reports: Intracranial, Other (See Below) Other Neurological Surgeries/Procedures: scar tissue removed from R side of brain Musculoskeletal Surgical History: Reports: Hip Replacement, ORIF, Other (See Below) Other Musculoskeletal Surgeries/Procedures:: bilat wrist surgery, hip replacement Oncologic Surgical History: Reports: None Dermatological Surgical History: Reports: None Social & Family History - Family History Family Medical History: Noncontributory - Tobacco Use Smoking Status *Q: Current Every Day Smoker - Caffeine Use Caffeine Use: Reports: Coffee, Soda, Tea - Alcohol Use Alcohol Use History: No - Recreational Drug Use Recreational Drug Use: No - Living Situation & Occupation Occupation: Disabled ED ROS GENERAL - Review of Systems Review Of Systems: ROS reveals no pertinent complaints other than HPI. ED EXAM, GENERAL - Physical Exam Exam: See Below Free Text/Narrative:: Gen.: Alert, pleasant no acute distress. Head is atraumatic, pupils equal and reactive, facial muscles symmetric. Throat without erythema mucous members are moist. Neck is supple and there is no cervical adenopathy. Lungs are clear throughout with no wheezes or crackles and heart is regular rate and rhythm. Abdomen positive bowel sounds, soft nontender. Peripheral pulses +2 in the upper and lower extremities and there is no lower extremity edema. Skin is slightly dry but without lesions or rashes EKG INTERPRETATION Comparison: No Change Course - Vital Signs Text/Narrative:: Patient here again with chest pain and slightly elevated blood pressure. Nitroglycerin given 3 with complete resolution of his pain and no changes on EKG or monitor. Initial labs ordered. Last Recorded V/S: Last Vital Signs Temp 36.6 C 05/10/19 16:59 Pulse 56 L 05/10/19 23:45 Resp 14 05/10/19 23:45 BP 126/77 05/10/19 23:45 Pulse Ox 97 05/10/19 23:45 - Orders/Labs/Meds Orders: Active Orders 24 hr Category Date Time Status EKG Documentation Completion [RC] ASDIRECTED Care 05/10/19 17:04 Active EKG Documentation Completion [RC] ASDIRECTED Care 05/10/19 19:27 Active EKG Documentation Completion [RC] ASDIRECTED Care 05/10/19 23:50 Active CXR [Chest 2V] [CR] Stat Exams 05/10/19 18:21 Taken EKG 12 Lead [EK] Routine Ther 05/10/19 17:03 Ordered EKG 12 Lead [EK] Routine Ther 05/10/19 18:27 Ordered EKG 12 Lead [EK] Routine Ther 05/10/19 23:49 Ordered Labs: Laboratory Tests 05/10/19 05/10/19 05/10/19 Range/Units 17:20 17:20 17:20 WBC 10.0 (4.5-12.0) X10-3/uL RBC 6.13 H (4.30-5.75) x10(6)uL Hgb 17.0 (13.5-17.8) g/dL Hct 51.2 (30.0-51.3) % MCV 83.7 (80-96) fL MCH 27.7 (27.7-33.6) pg MCHC 33.1 (32.2-35.4) g/dL RDW 16.9 H (11.5-15.5) % Plt Count 699 H (125-369) X10(3)uL MPV 8.1 (7.4-10.4) fL Neut % (Auto) 76.6 (46-82) % Lymph % (Auto) 14.1 (13-37) % [place] % (Auto) 4.3 (4-12) % Eos % (Auto) 3 (1.0-5.0) % Baso % (Auto) 2 (0-2) % Neut # (Auto) 7.7 (1.6-8.3) # Lymph # (Auto) 1.4 (0.6-5.0) # [place] # (Auto) 0.4 (0.0-1.3) # Eos # (Auto) 0.3 (0.0-0.8) # Baso # (Auto) 0.2 (0.0-0.2) # Sodium 140 (135-145) mmol/L Potassium 3.8 (3.5-5.3) mmol/L Chloride 103 (100-110) mmol/L Carbon Dioxide 29 (21-32) mmol/L BUN 17 (7-18) mg/dL Creatinine 0.9 (0.70-1.30) mg/dL Est Cr Clr Drug Dosing TNP Estimated GFR (MDRD) > 60 (>60) BUN/Creatinine Ratio 18.9 (9-20) Glucose 97 (80-116) mg/dL Calcium 9.0 (8.6-10.2) mg/dL Troponin I < 0.017 L (<0.017-0.056) ng/mL 05/10/19 05/10/19 Range/Units 20:25 23:25 WBC (4.5-12.0) X10-3/uL RBC (4.30-5.75) x10(6)uL Hgb (13.5-17.8) g/dL Hct (30.0-51.3) % MCV (80-96) fL MCH (27.7-33.6) pg MCHC (32.2-35.4) g/dL RDW (11.5-15.5) % Plt Count (125-369) X10(3)uL MPV (7.4-10.4) fL Neut % (Auto) (46-82) % Lymph % (Auto) (13-37) % [place] % (Auto) (4-12) % Eos % (Auto) (1.0-5.0) % Baso % (Auto) (0-2) % Neut # (Auto) (1.6-8.3) # Lymph # (Auto) (0.6-5.0) # [place] # (Auto) (0.0-1.3) # Eos # (Auto) (0.0-0.8) # Baso # (Auto) (0.0-0.2) # Sodium (135-145) mmol/L Potassium (3.5-5.3) mmol/L Chloride (100-110) mmol/L Carbon Dioxide (21-32) mmol/L BUN (7-18) mg/dL Creatinine (0.70-1.30) mg/dL Est Cr Clr Drug Dosing Estimated GFR (MDRD) (>60) BUN/Creatinine Ratio (9-20) Glucose (80-116) mg/dL Calcium (8.6-10.2) mg/dL Troponin I < 0.017 L < 0.017 L (<0.017-0.056) ng/mL - Re-Assessments/Exams Free Text/Narrative Re-Assessment/Exam: initial troponin negative, labs otherwise ok. Discussed with patient doing a 6 hour rule out in the emergency room, versus transfer to [facility]. We cannot admit overnight here as we are on divert. Patient very much does not want to go to [facility], and argues he is scheduled to see cardiology on Monday anyway. Discussed risks and benefits of this approach and he is in agreement. We'll plan to repeat troponin at 3 hours and at 6 hours with repeat EKG at 6 hours and if he has any recurrent pain. On monitor Free Text/Narrative Re-Assessment/Exam: repeat troponin and EKG within normal limits. Patient without any recurrent chest pain while here. Discharge to home, followup as scheduled, return precautions given. Departure - Departure Time of Disposition: 00:03 Disposition: Home, Self-Care 01 Condition: Fair Clinical Impression: Chest pain, rule out acute myocardial infarction - Discharge Information *PRESCRIPTION DRUG MONITORING PROGRAM REVIEWED*: Not Applicable *COPY OF PRESCRIPTION DRUG MONITORING REPORT IN PATIENT NANCY: Not Applicable Instructions: Nonspecific Chest Pain, [id number] Referrals: Rey Jacobson MD [Primary Care Provider] - Forms: ED Department Discharge Additional Instructions: followup as scheduled with cardiology return if increasing pain that won't resolve or needs more than one dose of SL nitro. Or if pain associated with sweating, nausea/vomiting, radiating to arm or jaw, or feeling lightheaded or dizzy - My Orders Last 24 Hours: My Active Orders 05/10/19 17:03 EKG 12 Lead [EK] Routine 05/10/19 17:04 EKG Documentation Completion [RC] ASDIRECTED 05/10/19 18:21 CXR [Chest 2V] [CR] Stat 05/10/19 18:27 EKG 12 Lead [EK] Routine 05/10/19 19:27 EKG Documentation Completion [RC] ASDIRECTED 05/10/19 23:49 EKG 12 Lead [EK] Routine 05/10/19 23:50 EKG Documentation Completion [RC] ASDIRECTED - Assessment/Plan Last 24 Hours: My Active Orders 05/10/19 17:03 EKG 12 Lead [EK] Routine 05/10/19 17:04 EKG Documentation Completion [RC] ASDIRECTED 05/10/19 18:21 CXR [Chest 2V] [CR] Stat 05/10/19 18:27 EKG 12 Lead [EK] Routine 05/10/19 19:27 EKG Documentation Completion [RC] ASDIRECTED 05/10/19 23:49 EKG 12 Lead [EK] Routine 05/10/19 23:50 EKG Documentation Completion [RC] ASDIRECTED
[2019-05-11 09:36] VITALS: BP 126/77; PULSE 56
--- NOTE | 2019-05-13 09:58 | CR ---
INDICATION: Chest pain. CHEST: Two PA views and a lateral view of the chest were obtained, 05/10/19, and compared with 04/04/19 and 10/17/15, again revealing the heart to be normal in size and shape. Findings compatible with COPD are noted. Overlying EKG leads are noted. The aorta is tortuous with minimal calcification suggested in the arch. An active infiltrate or effusion was not identified. Bony structures appear to be grossly intact. IMPRESSION: 1. No acute process. 2. Probable COPD - correlate clinically. 3. ASD aorta. MTDD
== END 2019-05-11 00:15 | disposition home or self-care (01) ==
LOC: FB.ED 16:59
DX: R07.9 Chest pain, unspecified (principal); I10 Essential (primary) hypertension; F41.9 Anxiety disorder, unspecified; F17.200 Nicotine dependence, unspecified, uncomplicated; Z88.5 Allergy status to narcotic agent; Z79.899 Other long term (current) drug therapy
CPT/HCPCS: 36415; 71046; 80048; 84484; 85025; 93005; 99285-25

== ENCOUNTER 2019-11-28 15:33 | Emergency (ER) | payer MEDICARE, OTHER ==
[2019-11-28] MEDS ORDERED: HYDROmorphone 2 MG/ML SDV IVPUSH ONE (15:55)
[2019-11-28] MEDS ORDERED: Ondansetron 4 MG/2 ML SDV IVPUSH ONE (15:55)
[2019-11-28] MEDS ORDERED: Sodium Chloride 0.9% 1,000 ML IV SCH (16:00)
[2019-11-28 16:51] VITALS: BP 147/84; PULSE 67
--- NOTE | 2019-11-28 17:34 | CT ---
INDICATION: Left flank pain. History of previous renal calculi. CT ABDOMEN AND PELVIS WITHOUT CONTRAST: Spiral 2.5 mm axial images were obtained through the abdomen and pelvis with sagittal and coronal reconstructions utilizing renal calculus protocol, 11/28/19 and compared with . Total exam DLP was 979.78 mGy-cm. Low lung banks and pleural spaces visualized appeared normal. The heart did not appear enlarged. No pericardial effusion was seen. Small low-density mass in the right adrenal is again noted - was present on a previous examination of 08/23/18 and is compatible with benign adrenal adenoma. Multiple tiny calculi are noted in the upper pole of the right kidney with no obstructive uropathy on the right. On the left, there is a 5.1 mm calculus in the mid pole with a few very tiny calcifications otherwise seen. The calcification of 5.1 mm is most likely intercalyx. On the left, there is hydronephrosis of mild degree and hydroureter due to a 6.1 mm calculus in the lower middle pelvis compatible with the site of obstructive uropathy. Bilateral total hip arthroplasties produce a large amount of hard beam artifact , limiting detail in the lower pelvis. What appears to be the appendix appeared normal in size. No free air or bowel obstruction was seen. There are nondistended fluid-filled loops of bowel without air-fluid levels, which may represent fluid intake. Calcifications are noted in the abdominal aorta to a minimal degree and in the iliac and femoral arteries to a greater degree. There is no evidence of hepatic steatosis on the current study. The gallbladder showed no evidence of calculi. The spleen and pancreas appeared normal. The common bile duct was not enlarged in the head of the pancreas. Degenerative changes and disk disease are noted at L5-S1. No additional mass lesions, organomegaly or free fluid collections identified in the abdomen or pelvis. IMPRESSION: 1. Moderate obstructive uropathy on the left due to a distal ureteral calculus of 6.1 mm well above the ureterovesical junction at this time. 2. Renal calcinosis. 3. Small fixed hiatal hernia is suggested. 4. Small probable benign adrenal adenoma on the right - stable. 5. ASD. 6. Degenerative changes & disk disease L5-S1. 7. Bilateral total hip arthroplasties producing hard beam artifact in the lower pelvis area. Report was called to Dr. Cruz at 1700 hours. [facility]
--- NOTE | 2019-11-28 17:51 | EDM.PDOC ---
ED HPI GENERAL MEDICAL PROBLEM - General Chief Complaint: Abdominal Pain Stated Complaint: BACK PAIN Time Seen by Provider: 11/28/19 15:45 Source of Information: Reports: Patient History Limitations: Reports: No Limitations - History of Present Illness INITIAL COMMENTS - FREE TEXT/NARRATIVE: Patient presented to the ED because of left flank pain,06/06. The pain is sharp and radiates to the left groin and testicle. There is no associated fever/chills ,changes in bowel symptoms or urinary symptoms. Left Middle Mid-Posterior Abdomen Pain Score (Numeric/FACES): 8 - Related Data Allergies Allergy/AdvReac Type Severity Reaction Status Date / Time codeine Allergy Severe Nausea and Verified 05/07/19 09:44 Vomiting Home Meds: Home Meds Felbamate [Felbatol] 1,800 mg PO BID 05/30/16 [History] lamoTRIgine [Lamictal] 200 mg PO BID 05/30/16 [History] Losartan/Hydrochlorothiazide [Losartan-HCTZ 50-12.5 MG] 1 tab PO DAILY 04/04/19 [History] lamoTRIgine [Lamictal] 50 mg PO BID 04/05/19 [History] busPIRone [Buspar] 10 mg PO TID PRN 14 Days #42 tab 04/06/19 [Rx] Acetaminophen/oxyCODONE [Percocet 325-5 MG] 2 each PO Q6HR #15 tab 11/28/19 [Rx] Tamsulosin HCl [Flomax] 0.4 mg PO DAILY #10 cap.er.24h 11/28/19 [Rx] Past Medical History HEENT History: Reports: None Cardiovascular History: Reports: Hypertension Respiratory History: Reports: None Gastrointestinal History: Reports: Colon Polyp Genitourinary History: Reports: Renal Calculus SLOT FLOOR PERSON History: Reports: None Musculoskeletal History: Reports: Fracture Other Musculoskeletal History: hx bilat wrist fx Neurological History: Reports: Seizure, Other (See Below) 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 Psychiatric History: Reports: Addiction, Anxiety, Mood Swings Other Psychiatric History: Hx ETOH abuse, drug abuse Endocrine/Metabolic History: Reports: None Hematologic History: Reports: None Immunologic History: Reports: None Oncologic (Cancer) History: Reports: None Dermatologic History: Reports: None - Infectious Disease History Infectious Disease History: Reports: Chicken Pox - Past Surgical History HEENT Surgical History: Reports: Other (See Below) Other HEENT Surgeries/Procedures: tubes in ears Cardiovascular Surgical History: Reports: None Respiratory Surgical History: Reports: None GI Surgical History: Reports: Colonoscopy Male Surgical History: Reports: None Neurological Surgical History: Reports: Intracranial, Other (See Below) Other Neurological Surgeries/Procedures: scar tissue removed from R side of brain Musculoskeletal Surgical History: Reports: Hip Replacement, ORIF, Other (See Below) Other Musculoskeletal Surgeries/Procedures:: bilat wrist surgery, hip replacement Oncologic Surgical History: Reports: None Dermatological Surgical History: Reports: None Social & Family History - Family History Family Medical History: Noncontributory - Tobacco Use Smoking Status *Q: Current Every Day Smoker Years of Tobacco use: 0 Packs/Tins Daily: 0 - Caffeine Use Caffeine Use: Reports: None - Recreational Drug Use Recreational Drug Use: No - Living Situation & Occupation Occupation: Disabled ED ROS GENERAL - Review of Systems Review Of Systems: See Below Constitutional: Reports: No Symptoms HEENT: Reports: No Symptoms Respiratory: Reports: No Symptoms Cardiovascular: Reports: No Symptoms Endocrine: Reports: No Symptoms GI/Abdominal: Reports: No Symptoms : Reports: No Symptoms Musculoskeletal: Reports: No Symptoms Skin: Reports: No Symptoms Neurological: Reports: No Symptoms Psychiatric: Reports: No Symptoms Hematologic/Lymphatic: Reports: No Symptoms Immunologic: Reports: No Symptoms ED EXAM, RENAL/ - Physical Exam Exam: See Below Exam Limited By: No Limitations General Appearance: Alert, No Apparent Distress Ears: Normal External Exam, Normal Canal Nose: Normal Inspection, Normal Mucosa Throat/Mouth: Normal Inspection, Normal Lips Head: Atraumatic, Normocephalic Neck: Normal Inspection, Supple, Non-Tender Respiratory/Chest: No Respiratory Distress, Lungs Clear Cardiovascular: Normal Peripheral Pulses, Regular Rate, Rhythm, No Edema GI/Abdominal: Normal Bowel Sounds, Soft, Other (LCVAT) Back Exam: Normal Inspection, Full Range of Motion Course - Vital Signs Text/Narrative:: Labs and CT scan result was discussed with patient and verbalized full understanding NS 1 L bolus zofran 4 mg IV x1 dilaudid 2 mg IV x1 toradol 30 mg IV x1 Flomax 0.4 mg po x1 Last Recorded V/S: Last Vital Signs Temp 36.1 C 11/28/19 15:45 Pulse 67 04/02/20 15:45 Resp 18 11/28/19 15:45 BP 147/84 H 11/28/19 15:45 Pulse Ox - Orders/Labs/Meds Orders: Active Orders 24 hr Category Date Time Status EKG Documentation Completion [RC] ASDIRECTED Care 11/28/19 18:09 Active EKG 12 Lead [EK] Routine Ther 11/28/19 18:06 Ordered Labs: Laboratory Tests 11/28/19 11/28/19 Range/Units 16:30 16:30 WBC 14.7 H (4.5-12.0) X10-3/uL RBC 5.99 H (4.30-5.75) x10(6)uL Hgb 17.9 H (13.5-17.8) g/dL Hct 53.5 H (30.0-51.3) % MCV 89.2 (80-96) fL MCH 29.9 (27.7-33.6) pg MCHC 33.5 (32.2-35.4) g/dL RDW 13.8 (11.5-15.5) % Plt Count 599 H (125-369) X10(3)uL MPV 9.1 (7.4-10.4) fL Neut % (Auto) 88.3 H (46-82) % Lymph % (Auto) 5.0 L (13-37) % Travis % (Auto) 3.7 L (4-12) % Eos % (Auto) 1 (1.0-5.0) % Baso % (Auto) 3 H (0-2) % Neut # (Auto) 13.0 H (1.6-8.3) # Lymph # (Auto) 0.7 (0.6-5.0) # Travis # (Auto) 0.5 (0.0-1.3) # Eos # (Auto) 0.1 (0.0-0.8) # Baso # (Auto) 0.4 H (0.0-0.2) # Sodium 143 (135-145) mmol/L Potassium 3.8 (3.5-5.3) mmol/L Chloride 104 (100-110) mmol/L Carbon Dioxide 24 (21-32) mmol/L BUN 9 (7-18) mg/dL Creatinine 1.3 (0.70-1.30) mg/dL Est Cr Clr Drug Dosing TNP Estimated GFR (MDRD) 56 L (>60) BUN/Creatinine Ratio 6.9 L (9-20) Glucose 123 H (80-116) mg/dL Calcium 9.0 (8.6-10.2) mg/dL Meds: Medications Discontinued Medications Generic Name Dose Route Start Last Admin Trade Name Freq PRN Reason Stop Dose Admin Hydromorphone HCl 2 mg 11/28/19 15:55 11/28/19 16:15 Dilaudid IVPUSH 11/28/19 15:56 2 mg ONETIME ONE Administration Sodium Chloride 1,000 mls @ 999 mls/hr 11/28/19 16:00 11/28/19 16:36 Normal Saline IV 999 mls/hr ASDIRECTED ALEXIA Administration Ketorolac Tromethamine 30 mg 11/28/19 17:59 11/28/19 18:11 Toradol IVPUSH 11/28/19 18:00 30 mg ONETIME ONE Administration Ondansetron HCl 4 mg 11/28/19 15:55 11/28/19 16:15 Zofran IVPUSH 11/28/19 15:56 4 mg ONETIME ONE Administration Tamsulosin HCl 0.4 mg 11/28/19 17:59 11/28/19 18:12 Flomax PO 11/28/19 18:00 0.4 mg ONETIME ONE Administration Departure - Departure Time of Disposition: 17:45 Disposition: Home, Self-Care 01 Condition: Good Clinical Impression: Nephrolithiasis - Discharge Information Prescriptions: Acetaminophen/oxyCODONE [Percocet 325-5 MG] 2 each PO Q6HR #15 tab Tamsulosin HCl [Flomax] 0.4 mg PO DAILY #10 cap.er.24h Instructions: Kidney Stones, [id number] Referrals: Rey Jacobson MD [Primary Care Provider] - Forms: ED Department Discharge Additional Instructions: please read discharge instructions on kidney stone increase oral fluids flomax, take 1 tablet daily percocert/oxycodone, 1-2 tablets every 4-6 hours as needed for pain follow up this week so you can be referred to see a urologist(kidney specialist) Sepsis Event Note - Evaluation Sepsis Screening Result: No Definite Risk - Focused Exam Date Exam was Performed: 11/29/19 Time Exam was Performed: 11:09 - My Orders Last 24 Hours: My Active Orders 11/28/19 18:06 EKG 12 Lead [EK] Routine 11/28/19 18:09 EKG Documentation Completion [RC] ASDIRECTED - Assessment/Plan Last 24 Hours: My Active Orders 11/28/19 18:06 EKG 12 Lead [EK] Routine 11/28/19 18:09 EKG Documentation Completion [RC] ASDIRECTED
[2019-11-28] MEDS ORDERED: Ketorolac 30 MG/ML SDV IVPUSH ONE (17:59)
[2019-11-28] MEDS ORDERED: Tamsulosin 0.4 MG Cap.ER PO ONE (17:59)
== END 2019-11-28 18:15 | disposition home or self-care (01) ==
LOC: FB.ED 15:33
DX: N20.0 Calculus of kidney (principal); I10 Essential (primary) hypertension; F17.210 Nicotine dependence, cigarettes, uncomplicated; Z88.5 Allergy status to narcotic agent; Z79.899 Other long term (current) drug therapy
CPT/HCPCS: 36415; 74176; 80048; 85025; 96361; 96374; 96375; 99284; A9270; J1170; J1885; J2405; J7030

== ENCOUNTER 2023-09-29 16:27 | Inpatient (IN) | payer MEDICARE, OTHER ==
[2023-09-29 17:40] LABS: BASOPHILS ABSOLUTE AUTO 0.1 x10-3/uL (0.0-0.3); BASOPHILS PERCENT AUTO 0.8 % (0.3-3.8); EOSINOPHILS PERCENT AUTO 0.1 % (0.1-6.8); HEMATOCRIT 42.1 % (38.3-50.1); HEMOGLOBIN 14.5 g/dL (12.9-17.7); LYMPHOCYTES ABSOLUTE AUTO 0.9 x10-3/uL (0.5-4.5); LYMPHOCYTES PERCENT AUTO 9.8 % (15.8-45.3); MEAN CORPUSCULAR HGB CONC 34.5 g/dL (28.7-35.3); MEAN PLATELET VOLUME 9.3 fL (6.7-11.0); MONOCYTES ABSOLUTE AUTO 0.6 x10-3/uL (0.0-1.2); MONOCYTES PERCENT AUTO 6.8 % (5.5-15.2); NEUTROPHILS ABSOLUTE AUTO 7.2 x10-3/uL (1.7-6.9); NEUTROPHILS PERCENT AUTO 82.5 % (40.3-71.8); PLATELET COUNT,PLT 325 x10(3)uL (117-477); RED CELL DISTRIBUTION WIDTH 14.9 % (12.4-15.0); WHITE BLOOD CELL COUNT,WBC 8.7 x10-3/uL (3.2-10.1)
[2023-09-29 17:44] LABS: BLOOD UREA NITROGEN,BUN 33 mg/dL (7-18); CALCIUM 8.8 mg/dL (8.6-10.2); CARBON DIOXIDE,CO2 28 mmol/L (21-32); CHLORIDE,CL 91 mmol/L (100-110); CREATININE 1.5 mg/dL (0.70-1.30); EST CRCL DRUG DOSING (CG) 53.94 mL/min; ESTIMATED GFR 52 mL/min (>60); GLUCOSE RANDOM 115 mg/dL (80-116); POTASSIUM,K 3.1 mmol/L (3.5-5.3); SODIUM,NA 131 mmol/L (135-145)
[2023-09-29 17:46] LABS: RED BLOOD CELL COUNT 3.83 x10(6)uL (3.90-5.90)
[2023-09-29] MEDS: Sodium Chloride 0.9% 1,000 ML IV SCH (17:46)
[2023-09-29 17:50] LABS: A/G RATIO 0.9; ALANINE AMINOTRANSFERASE,ALT 68 U/L (12-36); ALBUMIN 3.3 g/dL (3.2-4.6); ALKALINE PHOSPHATASE 74 IU/L (56-112); ASPARTATE AMNIOTRANSFERASE,AST 102 IU/L (5-25); BILIRUBIN TOTAL 1.3 mg/dL (0.1-1.3); PROTEIN TOTAL,TP 7.2 g/dL (6.0-8.0)
[2023-09-29 17:56] LABS: TROPONIN I 15.6 pg/mL (4.0-60.3)
[2023-09-29 18:31] LABS: MAGNESIUM 2.5 mg/dL (1.8-2.5)
[2023-09-29] MEDS: Potassium Chloride 20 MEQ Tab.ER PO ONE (18:42)
[2023-09-29 19:02] LABS: BILIRUBIN,URINE NEGATIVE (NEGATIVE); GLUCOSE,URINE NORMAL (NORMAL); KETONES,URINE NEGATIVE (NEGATIVE); LEUKOCYTE ESTERASE,URINE NEGATIVE (NEGATIVE); NITRITE,URINE NEGATIVE (NEGATIVE); OCCULT BLOOD,URINE MODERATE (NEGATIVE); PROTEIN,URINE 30 mg/dL (NEGATIVE); UROBILINOGEN,URINE NORMAL (NEGATIVE)
[2023-09-29 19:05] LABS: APPEARANCE,URINE SLIGHTLY CLOUDY (CLEAR); BACTERIA,URINE RARE (NS); COLOR,URINE YELLOW (YELLOW); RBC,URINE 0-5 (0-5); SQUAMOUS EPITHELIAL CELLS,UR OCCASIONAL (NS,R,O); WBC,URINE 0-5 (0-5)
[2023-09-29 19:06] LABS: AMORPHOUS SEDIMENT,URINE FEW
[2023-09-29] MEDS: NS + KCl 20mEq/L 1,000 ML IV SCH (19:16)
[2023-09-29] MEDS ORDERED: Acetaminophen 325 MG Tab PO PRN (19:23)
[2023-09-29] MEDS ORDERED: Acetaminophen/HYDROcodone 325-5 MG Tab PO PRN (19:27)
[2023-09-29] MEDS ORDERED: Hydroxyurea 500 MG Cap PO SCH (21:00)
[2023-09-29] MEDS ORDERED: HYDROXYUREA 500 MG PO SCH (21:00)
[2023-09-29 21:19] LABS: LACTIC ACID 0.7 mmol/L (0.4-2.0)
[2023-09-29] MEDS: cefTRIAXone 1 GM Vial IVPUSH SCH (21:21)
[2023-09-29] MEDS: Azithromycin 500 MG in Sodium Chloride 0.9% 250 ML IV SCH (21:21)
[2023-09-29] MEDS: Oseltamivir 75 MG Cap PO SCH (21:30)
[2023-09-29] MEDS: Acetaminophen 325 MG Tab PO SCH (21:30)
[2023-09-29] MEDS: Apixaban 5 MG Tab PO SCH (21:30)
[2023-09-29] MEDS: HYDROXYUREA 500 MG PO SCH (21:33)
[2023-09-29] MEDS: FELBAMATE 600 MG PO SCH (21:33)
[2023-09-29] MEDS: lamoTRIgine 100 MG Tab PO SCH ×2 (22:06→22:07)
[2023-09-30] MEDS: lamoTRIgine 25 MG Tab PO SCH (00:46)
[2023-09-30] MEDS: Sodium Chloride 0.9% 1,000 ML IV SCH ×2 (00:56→12:21)
[2023-09-30] MEDS: Hydrocortisone Sodium Succinate 100 MG/2 ML SDV IVPUSH ONE (00:56)
[2023-09-30] MEDS ORDERED: Norepinephrine 4 MG in Dextrose 5% in Water 246 ML IV SCH (02:15)
[2023-09-30] MEDS: Norepinephrine Bit/D5W Premix 4 MG in Premix Bag 1 BAG IV SCH (02:39)
[2023-09-30 06:34] LABS: BASOPHILS PERCENT AUTO 0.2 % (0.3-3.8); EOSINOPHILS PERCENT AUTO 0.1 % (0.1-6.8); HEMATOCRIT 36.2 % (38.3-50.1); HEMOGLOBIN 12.4 g/dL (12.9-17.7); LYMPHOCYTES ABSOLUTE AUTO 0.5 x10-3/uL (0.5-4.5); LYMPHOCYTES PERCENT AUTO 5.9 % (15.8-45.3); MEAN CORPUSCULAR HEMOGLOBIN 37.8 pg (27.0-33.3); MEAN CORPUSCULAR HGB CONC 34.4 g/dL (28.7-35.3); MEAN CORPUSCULAR VOLUME 110.1 fL (80.8-98.7); MEAN PLATELET VOLUME 9.3 fL (6.7-11.0); MONOCYTES ABSOLUTE AUTO 0.3 x10-3/uL (0.0-1.2); MONOCYTES PERCENT AUTO 3.9 % (5.5-15.2); NEUTROPHILS ABSOLUTE AUTO 7.7 x10-3/uL (1.7-6.9); NEUTROPHILS PERCENT AUTO 89.9 % (40.3-71.8); PLATELET COUNT,PLT 281 x10(3)uL (117-477); RED CELL DISTRIBUTION WIDTH 14.7 % (12.4-15.0); WHITE BLOOD CELL COUNT,WBC 8.5 x10-3/uL (3.2-10.1)
[2023-09-30 06:45] LABS: A/G RATIO 0.9; ALANINE AMINOTRANSFERASE,ALT 62 U/L (12-36); ALBUMIN 2.7 g/dL (3.2-4.6); ALKALINE PHOSPHATASE 62 IU/L (56-112); ASPARTATE AMNIOTRANSFERASE,AST 86 IU/L (5-25); BILIRUBIN TOTAL 0.7 mg/dL (0.1-1.3); BLOOD UREA NITROGEN,BUN 30 mg/dL (7-18); BUN/CREATININE RATIO 27.3 (9-20); CALCIUM 7.9 mg/dL (8.6-10.2); CARBON DIOXIDE,CO2 21 mmol/L (21-32); CHLORIDE,CL 99 mmol/L (100-110); CREATININE 1.1 mg/dL (0.70-1.30); EST CRCL DRUG DOSING (CG) 71.87 mL/min; ESTIMATED GFR 75 mL/min (>60); GLUCOSE RANDOM 129 mg/dL (80-116); POTASSIUM,K 3.8 mmol/L (3.5-5.3); PROTEIN TOTAL,TP 5.8 g/dL (6.0-8.0); SODIUM,NA 132 mmol/L (135-145)
[2023-09-30 07:06] LABS: RED BLOOD CELL COUNT 3.29 x10(6)uL (3.90-5.90)
[2023-09-30 07:10] LABS: CREATINE KINASE,CK > 1000 IU/L (60-160)
[2023-09-30] MEDS: Doxycycline 100 MG Tab PO SCH (11:10)
[2023-09-30] MEDS: VANCOmycin 1.5 GM/300 ML 1.5 GM in Premix Bag 1 BAG IV ONE (13:43)
[2023-09-30] MEDS: Sodium Chloride 0.9% 10 ML Syringe FLUSH PRN (21:28)
[2023-10-01 07:00] LABS: BASOPHILS ABSOLUTE AUTO 0.1 x10-3/uL (0.0-0.3); BASOPHILS PERCENT AUTO 0.8 % (0.3-3.8); EOSINOPHILS ABSOLUTE AUTO 0.1 x10-3/uL (0.0-0.6); EOSINOPHILS PERCENT AUTO 0.6 % (0.1-6.8); HEMATOCRIT 35.6 % (38.3-50.1); HEMOGLOBIN 12.1 g/dL (12.9-17.7); LYMPHOCYTES PERCENT AUTO 11.6 % (15.8-45.3); MEAN CORPUSCULAR HEMOGLOBIN 37.8 pg (27.0-33.3); MEAN CORPUSCULAR HGB CONC 33.9 g/dL (28.7-35.3); MEAN CORPUSCULAR VOLUME 111.2 fL (80.8-98.7); MEAN PLATELET VOLUME 9.5 fL (6.7-11.0); MONOCYTES ABSOLUTE AUTO 0.3 x10-3/uL (0.0-1.2); MONOCYTES PERCENT AUTO 3.7 % (5.5-15.2); NEUTROPHILS ABSOLUTE AUTO 7.1 x10-3/uL (1.7-6.9); NEUTROPHILS PERCENT AUTO 83.3 % (40.3-71.8); PLATELET COUNT,PLT 288 x10(3)uL (117-477); RED CELL DISTRIBUTION WIDTH 14.5 % (12.4-15.0); WHITE BLOOD CELL COUNT,WBC 8.5 x10-3/uL (3.2-10.1)
[2023-10-01 07:22] LABS: A/G RATIO 0.8; ALANINE AMINOTRANSFERASE,ALT 54 U/L (12-36); ALBUMIN 2.5 g/dL (3.2-4.6); ALKALINE PHOSPHATASE 60 IU/L (56-112); ASPARTATE AMNIOTRANSFERASE,AST 68 IU/L (5-25); BILIRUBIN TOTAL 0.5 mg/dL (0.1-1.3); BLOOD UREA NITROGEN,BUN 18 mg/dL (7-18); CALCIUM 7.9 mg/dL (8.6-10.2); CARBON DIOXIDE,CO2 21 mmol/L (21-32); CHLORIDE,CL 106 mmol/L (100-110); CREATINE KINASE,CK 875 IU/L (60-160); EST CRCL DRUG DOSING (CG) 79.06 mL/min; ESTIMATED GFR 84 mL/min (>60); GLUCOSE RANDOM 104 mg/dL (80-116); POTASSIUM,K 3.8 mmol/L (3.5-5.3); PROTEIN TOTAL,TP 5.5 g/dL (6.0-8.0); SODIUM,NA 138 mmol/L (135-145)
[2023-10-01] MEDS: Albuterol 0.083% 2.5 MG/3 ML Neb Soln NEB PRN (09:56)
[2023-10-01] MEDS: Sennosides/Docusate Sodium 50-8.6 MG Tab PO PRN (09:56)
[2023-10-01] MEDS: Benzonatate 100 MG Cap PO PRN (09:56)
[2023-10-01] MEDS: Ondansetron 4 MG/2 ML SDV IV PRN (11:29)
[2023-10-01] MEDS: Sodium Chloride 0.9% 500 ML IV ONE (17:13)
[2023-10-01] MEDS: Acetaminophen 325 MG Tab PO PRN (20:57)
[2023-10-02 06:38] LABS: BASOPHILS ABSOLUTE AUTO 0.1 x10-3/uL (0.0-0.3); BASOPHILS PERCENT AUTO 0.8 % (0.3-3.8); EOSINOPHILS ABSOLUTE AUTO 0.1 x10-3/uL (0.0-0.6); EOSINOPHILS PERCENT AUTO 0.8 % (0.1-6.8); HEMATOCRIT 33.5 % (38.3-50.1); HEMOGLOBIN 11.3 g/dL (12.9-17.7); LYMPHOCYTES ABSOLUTE AUTO 0.8 x10-3/uL (0.5-4.5); LYMPHOCYTES PERCENT AUTO 9.5 % (15.8-45.3); MEAN CORPUSCULAR HGB CONC 33.8 g/dL (28.7-35.3); MEAN CORPUSCULAR VOLUME 112.4 fL (80.8-98.7); MEAN PLATELET VOLUME 9.3 fL (6.7-11.0); MONOCYTES ABSOLUTE AUTO 0.3 x10-3/uL (0.0-1.2); MONOCYTES PERCENT AUTO 4.3 % (5.5-15.2); NEUTROPHILS ABSOLUTE AUTO 6.9 x10-3/uL (1.7-6.9); NEUTROPHILS PERCENT AUTO 84.6 % (40.3-71.8); RED CELL DISTRIBUTION WIDTH 14.9 % (12.4-15.0); WHITE BLOOD CELL COUNT,WBC 8.1 x10-3/uL (3.2-10.1)
[2023-10-02 07:00] LABS: RED BLOOD CELL COUNT 2.98 x10(6)uL (3.90-5.90)
[2023-10-02 07:01] LABS: A/G RATIO 0.7; ALANINE AMINOTRANSFERASE,ALT 56 U/L (12-36); ALBUMIN 2.3 g/dL (3.2-4.6); ALKALINE PHOSPHATASE 62 IU/L (56-112); ASPARTATE AMNIOTRANSFERASE,AST 58 IU/L (5-25); BILIRUBIN TOTAL 0.6 mg/dL (0.1-1.3); BLOOD UREA NITROGEN,BUN 9 mg/dL (7-18); CALCIUM 8.1 mg/dL (8.6-10.2); CARBON DIOXIDE,CO2 25 mmol/L (21-32); CHLORIDE,CL 107 mmol/L (100-110); EST CRCL DRUG DOSING (CG) 79.06 mL/min; ESTIMATED GFR 84 mL/min (>60); GLUCOSE RANDOM 106 mg/dL (80-116); PLATELET COUNT,PLT 307 x10(3)uL (117-477); POTASSIUM,K 4.6 mmol/L (3.5-5.3); PROTEIN TOTAL,TP 5.4 g/dL (6.0-8.0); SODIUM,NA 140 mmol/L (135-145)
[2023-10-02 07:07] LABS: CREATINE KINASE,CK 682 IU/L (60-160)
[2023-10-02] MEDS: Hydroxyurea 500 MG Cap PO SCH (08:50)
[2023-10-02] MEDS: methylPREDNISolone Sodium Succinate 40 MG/1 ML SDV IVPUSH SCH (10:13)
[2023-10-03] MEDS: VANCOmycin 1.25 GM/250 ML 1.25 GM in Premix Bag 1 BAG IV SCH (10:52)
[2023-10-03 11:26] LABS: HEMATOCRIT 35.1 % (38.3-50.1); HEMOGLOBIN 11.6 g/dL (12.9-17.7); MEAN CORPUSCULAR HGB CONC 33.2 g/dL (28.7-35.3); MEAN CORPUSCULAR VOLUME 111.5 fL (80.8-98.7); MEAN PLATELET VOLUME 9.4 fL (6.7-11.0); PLATELET COUNT,PLT 360 x10(3)uL (117-477); RED BLOOD CELL COUNT 3.14 x10(6)uL (3.90-5.90); RED CELL DISTRIBUTION WIDTH 14.8 % (12.4-15.0); WHITE BLOOD CELL COUNT,WBC 11.1 x10-3/uL (3.2-10.1)
[2023-10-03 12:09] LABS: BLOOD UREA NITROGEN,BUN 13 mg/dL (7-18); BUN/CREATININE RATIO 14.4 (9-20); CALCIUM 8.4 mg/dL (8.6-10.2); CARBON DIOXIDE,CO2 27 mmol/L (21-32); CHLORIDE,CL 105 mmol/L (100-110); CREATININE 0.9 mg/dL (0.70-1.30); EST CRCL DRUG DOSING (CG) 87.85 mL/min; ESTIMATED GFR 95 mL/min (>60); GLUCOSE RANDOM 129 mg/dL (80-116); POTASSIUM,K 4.6 mmol/L (3.5-5.3); PROTEIN TOTAL,TP 5.6 g/dL (6.0-8.0); SODIUM,NA 139 mmol/L (135-145)
[2023-10-03 12:10] LABS: A/G RATIO 0.7; ALANINE AMINOTRANSFERASE,ALT 57 U/L (12-36); ALBUMIN 2.2 g/dL (3.2-4.6); ALKALINE PHOSPHATASE 69 IU/L (56-112); ASPARTATE AMNIOTRANSFERASE,AST 54 IU/L (5-25); BILIRUBIN TOTAL 0.4 mg/dL (0.1-1.3); CREATINE KINASE,CK 514 IU/L (60-160)
[2023-10-03 12:11] LABS: VANCOMYCIN TROUGH 9.5 ug/mL (<0.8)
[2023-10-03 12:13] LABS: EOSINOPHILS PERCENT MAN 1 % (0-5); GIANT PLATELETS FEW; LYMPHOCYTES PERCENT MAN 7 % (13-37); MONOCYTES PERCENT MAN 4 % (4-12); SEG NEUTROPHILS PERCENT MAN 88 % (46-82)
[2023-10-04 06:47] LABS: BASOPHILS PERCENT AUTO 0.4 % (0.3-3.8); EOSINOPHILS PERCENT AUTO 0.5 % (0.1-6.8); HEMATOCRIT 36.1 % (38.3-50.1); HEMOGLOBIN 12.1 g/dL (12.9-17.7); MEAN CORPUSCULAR HEMOGLOBIN 37.6 pg (27.0-33.3); MEAN CORPUSCULAR HGB CONC 33.7 g/dL (28.7-35.3); MONOCYTES ABSOLUTE AUTO 0.3 x10-3/uL (0.0-1.2); MONOCYTES PERCENT AUTO 3.6 % (5.5-15.2); NEUTROPHILS ABSOLUTE AUTO 7.7 x10-3/uL (1.7-6.9); NEUTROPHILS PERCENT AUTO 84.5 % (40.3-71.8); PLATELET COUNT,PLT 458 x10(3)uL (117-477); RED BLOOD CELL COUNT 3.23 x10(6)uL (3.90-5.90); WHITE BLOOD CELL COUNT,WBC 9.1 x10-3/uL (3.2-10.1)
[2023-10-04 06:56] LABS: A/G RATIO 0.6; ALANINE AMINOTRANSFERASE,ALT 69 U/L (12-36); ALBUMIN 2.3 g/dL (3.2-4.6); ALKALINE PHOSPHATASE 71 IU/L (56-112); ASPARTATE AMNIOTRANSFERASE,AST 49 IU/L (5-25); BILIRUBIN TOTAL 0.6 mg/dL (0.1-1.3); BLOOD UREA NITROGEN,BUN 17 mg/dL (7-18); CALCIUM 8.6 mg/dL (8.6-10.2); CARBON DIOXIDE,CO2 26 mmol/L (21-32); CHLORIDE,CL 104 mmol/L (100-110); EST CRCL DRUG DOSING (CG) 79.06 mL/min; ESTIMATED GFR 84 mL/min (>60); GLUCOSE RANDOM 109 mg/dL (80-116); POTASSIUM,K 4.3 mmol/L (3.5-5.3); SODIUM,NA 138 mmol/L (135-145)
[2023-10-04 07:01] LABS: MEAN CORPUSCULAR VOLUME 111.8 fL (80.8-98.7); MEAN PLATELET VOLUME 9.1 fL (6.7-11.0)
[2023-10-04] MEDS ORDERED: Albuterol 6.7 GM Inhaler INH PRN (10:41)
[2023-10-04] MEDS: Cefdinir 300 MG Cap PO SCH (20:28)
[2023-10-05 03:35] VITALS: PULSE 62
[2023-10-05 06:41] LABS: BASOPHILS PERCENT AUTO 0.4 % (0.3-3.8); EOSINOPHILS ABSOLUTE AUTO 0.2 x10-3/uL (0.0-0.6); EOSINOPHILS PERCENT AUTO 4.3 % (0.1-6.8); HEMATOCRIT 33.1 % (38.3-50.1); HEMOGLOBIN 11.2 g/dL (12.9-17.7); LYMPHOCYTES ABSOLUTE AUTO 1.2 x10-3/uL (0.5-4.5); LYMPHOCYTES PERCENT AUTO 24.2 % (15.8-45.3); MEAN CORPUSCULAR HEMOGLOBIN 37.8 pg (27.0-33.3); MEAN PLATELET VOLUME 8.7 fL (6.7-11.0); MONOCYTES ABSOLUTE AUTO 0.3 x10-3/uL (0.0-1.2); NEUTROPHILS ABSOLUTE AUTO 3.3 x10-3/uL (1.7-6.9); NEUTROPHILS PERCENT AUTO 65.1 % (40.3-71.8); PLATELET COUNT,PLT 425 x10(3)uL (117-477); RED BLOOD CELL COUNT 2.98 x10(6)uL (3.90-5.90)
[2023-10-05 06:52] LABS: A/G RATIO 0.7; ALANINE AMINOTRANSFERASE,ALT 63 U/L (12-36); ALBUMIN 2.1 g/dL (3.2-4.6); ALKALINE PHOSPHATASE 65 IU/L (56-112); ASPARTATE AMNIOTRANSFERASE,AST 36 IU/L (5-25); BILIRUBIN TOTAL 0.6 mg/dL (0.1-1.3); BLOOD UREA NITROGEN,BUN 16 mg/dL (7-18); CALCIUM 8.2 mg/dL (8.6-10.2); CARBON DIOXIDE,CO2 26 mmol/L (21-32); CHLORIDE,CL 105 mmol/L (100-110); CREATININE 0.8 mg/dL (0.70-1.30); EST CRCL DRUG DOSING (CG) 98.83 mL/min; ESTIMATED GFR 99 mL/min (>60); GLUCOSE RANDOM 94 mg/dL (80-116); POTASSIUM,K 3.6 mmol/L (3.5-5.3); PROTEIN TOTAL,TP 5.1 g/dL (6.0-8.0); SODIUM,NA 139 mmol/L (135-145)
[2023-10-05 07:00] LABS: MEAN CORPUSCULAR VOLUME 111.2 fL (80.8-98.7)
[2023-10-05] MEDS: predniSONE 20 MG Tab PO SCH (08:20)
[2023-10-05 09:41] VITALS: BP 153/81
== END 2023-10-05 11:42 | disposition home or self-care (01) | DRG 871 ==
LOC: FB.ED 16:27 → FB.MS 19:09 → OBSVTOIN 19:09
PROVIDERS: ADMIT Emergency Medicine; ATTEND Family Medicine
PROC: 3E033XZ Introduction of Vasopressor into Peripheral Vein, Percutaneous Approach (ICD-10-PCS; principal; 2023-09-29)
PROC: 3E03329 Introduction of Other Anti-infective into Peripheral Vein, Percutaneous Approach (ICD-10-PCS; 2023-09-29)
DX: J11.1 Influenza due to unidentified influenza virus with other respiratory manifestations (principal); A41.89 Other specified sepsis; J11.08 Influenza due to unidentified influenza virus with specified pneumonia; J96.01 Acute respiratory failure with hypoxia; J15.212 Pneumonia due to Methicillin resistant Staphylococcus aureus; N17.9 Acute kidney failure, unspecified; M62.82 Rhabdomyolysis; E87.1 Hypo-osmolality and hyponatremia; D75.81 Myelofibrosis; J44.1 Chronic obstructive pulmonary disease with (acute) exacerbation; J44.0 Chronic obstructive pulmonary disease with (acute) lower respiratory infection; R06.89 Other abnormalities of breathing; I95.9 Hypotension, unspecified; Z88.8 Allergy status to other drugs, medicaments and biological substances; I10 Essential (primary) hypertension; W19.XXXA Unspecified fall, initial encounter; F41.9 Anxiety disorder, unspecified; Z96.649 Presence of unspecified artificial hip joint; F17.210 Nicotine dependence, cigarettes, uncomplicated; E86.0 Dehydration; R56.9 Unspecified convulsions; E87.6 Hypokalemia; F10.10 Alcohol abuse, uncomplicated; R74.01 Elevation of levels of liver transaminase levels; D75.839 Thrombocytosis, unspecified; T79.6XXA Traumatic ischemia of muscle, initial encounter; R11.2 Nausea with vomiting, unspecified; W18.30XA Fall on same level, unspecified, initial encounter; R53.81 Other malaise; Z88.5 Allergy status to narcotic agent; Z79.899 Other long term (current) drug therapy; Z86.16 Personal history of COVID-19; Z79.01 Long term (current) use of anticoagulants; Z87.442 Personal history of urinary calculi; Z87.81 Personal history of (healed) traumatic fracture; Z86.010 Personal history of colon polyps; Z98.890 Other specified postprocedural states; Y92.89 Other specified places as the place of occurrence of the external cause
CPT/HCPCS: 36415; 71045; 71046; 73080-LT; 80053; 80202; 81001; 82550; 83605; 83735; 83880; 84484; 85025; 93005; 93010; 94150; 94640; 96361; 96365; 96366; 96367; 96368; 96375; 97161-GP; 97165-GO; 97530-GP; 99223; 99232; 99233; 99238; 99285; 99285-25; A9270-GY; G0378; J0456; J0696; J1720; J2405; J2920; J3370; J3480; J3490; J7030; J7040; J7050; J7512